=== PATIENT | male | born 1950 | race Caucasian/White ===

== ENCOUNTER → 2018-11-22 07:22 | Outpatient (CLI) | payer OTHER, SELFPAY ==
[2018-11-16 18:39] VITALS: BMI 24.3
--- NOTE | 2018-11-22 10:03 | NEURO ---
NCS and/or EMG Patient Report Ordering Doctor: María Murphy DATE OF SERVICE: 11/22/18 This is a right upper extremity EMG and nerve conduction study performed on this 68-year-old male with a history of diabetes first diagnosed about 16 years ago, he says up until about 10 years ago his diabetes was poorly controlled but has been well controlled since that time. About 2 months ago, he awoke with anesthesia is in his first 3 digits on his right hand which has since evolved to affect all of his fingers. He does not know his current hemoglobin A1c but he says his blood sugars usually run in the 110 to 120 range. Wrist splints and anti-inflammatories have not been helpful for his hand discomfort. Right upper extremity sensory and motor nerve conduction studies performed. The median motor and sensory distal latencies are prolonged with reduced amplitude diffusely along the path of the median nerve and severely reduced conduction velocity. The ulnar motor and sensory and radial sensory responses are relatively preserved. The right median F wave is severely prolonged compared to the ulnar f wave. Needle electromyography is performed of the right upper extremity. Muscles evaluated included the first dorsal interosseous, abductor pollicis brevis, brachioradialis, biceps, triceps and deltoid muscles. The abductor pollicis brevis muscle and the first dorsal interosseous did demonstrate large motor units with minimal increased insertional activity and fibrillation potentials. All other muscles demonstrated normal insertional activity with absence of pathologic spontaneous activity. Motor unit potential recruitment pattern and amplitude was normal in all other muscles tested. It is noted that he has atrophy of intrinsic hand muscles bilaterally. Impression this is an abnormal electrophysiologic study of the right upper extremity consistent with severe median neuropathy however this is likely proximal to the carpal tunnel based on abnormalities more proximal carpal tunnel on elective histologic testing as well as clear atrophy of the ulnar muscle bilaterally. There is no evidence of C8 radiculopathy. Assuming blood sugars are well controlled other evaluations could include serum and urine protein electrophoresis, LFTs, B12 levels, and testing for inflammatory markers including sed rate and CRP.
--- OUTSIDE RECORDS SUMMARY | 2019-01-24 07:35 | XMS RPT_ITS ---
:1950 Author Organization [facility] Care Team Providers Name Role Phone María Murphy MANAGER STORY-[place]un[place] Attending Unavailable María Murphy MANAGER STORY-C Referring Unavailable María Murphy MANAGER STORY-C Primary Care Unavailable PROBLEMS PROBLEMS DATE TYPE CONDITION / CODE ATTENDING STATUS SOURCE 11/22/2018 Unknown R20.0 - Jeffrey, Active [place] Anesthesia of María MANAGER STORY-C [facility] skin / Hospital R20.0(ICD-10) Repository 11/22/2018 Unknown G56.00 - Carpal Murphy, Active [place] tunnel syndrome, María MANAGER STORY-C [facility] unspecified upper Hospital limb / Repository G56.00(ICD-10) 11/22/2018 Unknown R25.2 - Cramp and Jeffrey, Active [facility] spasm / María MANAGER STORY-C [facility] R25.2(ICD-10) Hospital Repository PROCEDURES PROCEDURES No Procedure Records FoundRESULTS RESULTS NCS AND/OR EMG Observed: 11/23/2018 Status: F Source: [place] PATIENT 9:55 AM [facility] REPOSITORY [facility] Pulmonary Services/Neurology [address] [place] [address] MR#: [id number] Acct: [id number] Name: ETHEL PACHECO Rep #: [id number] : 1950 68 From: Iván Lowery MD Referring Dr: María Murphy, MANAGER STORY Status: REG CLI Ordering Dr: Date: Location: [facility] Sex: M C NCS and/or EMG Patient Report Ordering Doctor: María Murphy DATE OF SERVICE: 11/22/18 This is a right upper extremity EMG and nerve conduction study performed on this 68-year-old male with a history of diabetes first diagnosed about 16 years ago, he says up until about 10 years ago his diabetes was poorly controlled but has been well controlled since that time. About 2 months ago, he awoke with anesthesia is in his first 3 digits on his right hand which has since evolved to affect all of his fingers. He does not know his current hemoglobin A1c but he says his blood sugars usually run in the 110 to 120 range. Wrist splints and anti-inflammatories have not been helpful for his hand discomfort. Right upper extremity sensory and motor nerve conduction studies performed. The median motor and sensory distal latencies are prolonged with reduced amplitude diffusely along the path of the median nerve and severely reduced conduction velocity. The ulnar motor and sensory and radial sensory responses are relatively preserved. The right median F wave is severely prolonged compared to the ulnar f wave. Needle electromyography is performed of the right upper extremity. Muscles evaluated included the first dorsal interosseous, abductor pollicis brevis, brachioradialis, biceps, triceps and deltoid muscles. The abductor pollicis brevis muscle and the first dorsal interosseous did demonstrate large motor units with minimal increased insertional activity and fibrillation potentials. All other muscles demonstrated normal insertional activity with absence of pathologic spontaneous activity. Motor unit potential recruitment pattern and amplitude was normal in all other muscles tested. It is noted that he has atrophy of intrinsic hand muscles bilaterally. Impression this is an abnormal electrophysiologic study of the right upper extremity consistent with severe median neuropathy however this is likely proximal to the carpal tunnel based on abnormalities more proximal carpal tunnel on elective histologic testing as well as clear atrophy of the ulnar muscle bilaterally. There is no evidence of C8 radiculopathy. Assuming blood sugars are well controlled other evaluations could include serum and urine protein electrophoresis, LFTs, B12 levels, and testing for inflammatory markers including sed rate and CRP. 11/23/18 0955 <Electronically signed by Iván Lowery MD> Date Iván Lowery MD CC: NATALIE Murphy; Iván Lowery MD Date Dictated: 11/22/18 1003 Date Transcribed: 11/22/181002 Director Semiconductor: MELYSSA Signed OFFICE VISIT Observed: 11/17/2018 Status: F Source: [facility] 11:14 AM [facility] REPOSIT[facility] [address] [place] [address] OFFICE VISIT Date of Service: 11/16/18 MR#: [id number] Acct: [id number] Name: ETHEL PACHECO Rep #: [id number] : 1950 Provider: NATALIE Murphy Age/Sex: 68/M Location: [facility] Status: Signed Intake Vital Signs11/16/18 Height 5 ft 6 in Intake Visit Reasons: R HAND PAIN ORDER TEST Accompanied by: self Is patient in pain?: No Allergies No Known Allergies Allergy (Unverified 10/05/18 18:35) Medications aspirin 81 mg tablet,delayed release 81 mg PO DAILY 10/05/18 [History Confirmed 10/05/18] cholecalciferol (vitamin D3) 5,000 unit capsule 10,000 unit PO DAILY cap 10/05/18 [History Confirmed 10/05/18] glyburide 5 mg tablet 10 mg PO DAILY tab 10/05/18 [History Confirmed 10/05/18] losartan 100 mg tablet 100 mg PO DAILY 10/05/18 [History Confirmed 10/05/18] metformin 1,000 mg tablet 1,000 mg PO BID 10/05/18 [History Confirmed 10/05/18] naproxen 500 mg tablet 500 mg PO BID #60 tab 10/05/18 [Rx Confirmed 10/05/18] simvastatin 20 mg tablet 20 mg PO QHS 10/05/18 [History Confirmed 10/05/18] gabapentin 100 mg capsule 200 mg PO .qid PRN 30 Days #360 cap 11/16/18 [Rx Confirmed 11/16/18] PFSH Medical History DIABETES TYPE 2 (Acute) Hyperlipidemia (Acute) Social History Smoking Status: Current every day smoker second hand exposure: Yes alcohol intake: current substance use type: does not use HPI HPI (General) HPI HPI: ETHEL PACHECO, is a 68 M who presents to the office today for numbness in the R hand for a couple of months I saw him for the same thing in Oct and gave him a cockup splint and antiinflammatories and it does not help He is losing strength and movement ,c/o pain at work gets spasms in his hand unable to grasp things . 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 ROS [facility] Musculoskeletal: Positive for numbness (r hand) and joint pain Neuro Neurology: Positive for numbness (r hand) Exam Const Constitutional: Yes cooperative, Yes healthy appearing Orientation: Yes alert, awake and oriented x3 Resp Effort AND Inspection: Yes normal respiratory effort Auscultation: Yes clear to auscultation bilaterally Cardio Palpitation: Yes normal PMI Rate: Yes regular rate Rhythm: Yes regular rhythm GI Inspection: Yes normal to inspection Auscultation: Yes normal bowel sounds Skin General: no rashes or lesions noted Lesions: Yes no lesions Extrem General: Yes no clubbing, cyanosis or edema and normal exam except as noted (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 Spasms of the hands or feet R25.2 2. Carpal tunnel syndrome of right wrist G56.01 3. Numbness of right hand R20.0 Patient Instructions Stop the naproxen, Stop the splint wearing unless it helps try the gabapentin 1-2 up to 4-5 x a day I will call with when to go for the EMG testing and the Dr appointment. Medications New: Coding Level of Care Code Off vis,est,level 3 Diagnoses Spasms of the hands or feet R25.2 Carpal tunnel syndrome of right wrist G56.01 Laterality: right Numbness of right hand R20.0 11/17/18 1114 <Electronically signed by María OROZCO> Date María OROZCO CC: OFFICE VISIT Observed: 10/05/2018 Status: F Source: [place] 9:21 PM [facility] REPOSITORY [facility] [address] [place] [address] OFFICE VISIT Date of Service: 10/05/18 MR#: [id number] Acct: [id number] Name: ETHEL PACHECO Rep #: [id number] : 1950 Provider: NATALIE Murphy Age/Sex: 68/M Location: [facility] Status: Signed Intake Vital Signs10/05/18 Height 5 ft 6 in 10/05/18 Weight: 145 lb Intake Visit Reasons: R HAND NUMB Allergies No Known Allergies Allergy (Unverified 10/05/18 18:35) Medications aspirin 81 mg tablet,delayed release 81 mg PO DAILY 10/05/18 [History Confirmed 10/05/18] cholecalciferol (vitamin D3) 5,000 unit capsule 10,000 unit PO DAILY cap 10/05/18 [History Confirmed 10/05/18] glyburide 5 mg tablet 10 mg PO DAILY tab 10/05/18 [History Confirmed 10/05/18] losartan 100 mg tablet 100 mg PO DAILY 10/05/18 [History Confirmed 10/05/18] metformin 1,000 mg tablet 1,000 mg PO BID 10/05/18 [History Confirmed 10/05/18] naproxen 500 mg tablet 500 mg PO BID #60 tab 10/05/18 [Rx Confirmed 10/05/18] simvastatin 20 mg tablet 20 mg PO QHS 10/05/18 [History Confirmed 10/05/18] PFSH Medical History DIABETES TYPE 2 (Acute) Hyperlipidemia (Acute) Social History Smoking Status: Current every day smoker second hand exposure: Yes alcohol intake: current substance use type: does not use HPI HPI (General) HPI HPI: ETHEL PACHECO, is a 68 M who presents to the office today for numbness in his R hand for 10 -12 days noticed mostly after raking a month ago was doing alot of raking hand swollen up and was blanche painful for 3-4 days and hot to touch then went away and then this happened the L thumb has some deformity and is contracted The R hand looks normal but c/o 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 or 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 a wayne or anything up has some swelling on the inner wrist that could be ganglion cysts swollen up Needs a hand surgeon to evaluate Also suggested checking for RA or SIMONE ROS Musc Musculoskeletal: Positive for other (R hand nudmbness mostly first 3 fingers including thumb) Skin Skin: Positive for other (lump on the R inner wrist painful to touch) Breast Breast: Positive for other (lump on the R inner wrist painful to touch) Exam Const Constitutional: Yes cooperative, Yes healthy appearing Orientation: Yes alert, awake and oriented x3 Resp Effort AND Inspection: Yes normal respiratory effort Auscultation: Yes clear to auscultation bilaterally Cardio Palpitation: Yes normal PMI Rate: Yes regular rate Rhythm: Yes regular rhythm Skin General: no rashes or lesions noted Lesions: Yes no lesions Extrem General: Yes normal to inspection and other (neg tinels or phalens applied cock up splint to try) Neuro General: Yes alert and oriented x3 Psych Appearance: Positive grossly normal Mood: Positive congruent mood Affect: Positive normal affect Assessment AND Plan Problems 1. Carpal tunnel syndrome of right wrist G56.01 2. Numbness of right hand R20.0 3. Primary osteoarthritis of both hands M19.041; M19.042 Patient Instructions Wear the cock-up split 24/05 Take the naproxen for the swelling and pain follow up with a hand surgeon Medications New: Coding Level of Care Code Off vis,est,level 3 Diagnoses Carpal tunnel syndrome of right wrist G56.01 Laterality: right Numbness of right hand R20.0 Primary osteoarthritis of both hands M19.041; M19.042 Osteoarthritis location: hand Osteoarthritis type: primary Laterality: bilateral 10/05/182120 <Electronically signed by María OROZCO> Date María OROZCO CC: ALLERGIES ALLERGIES DATE TYPE / CODE NAME / CODE REACTION SEVERITY SOURCE 10/05/2018 Drug No Known Unknown [facility] Allergy/4160 Allergies/F00 [facility] [address](SNOMED [id number](RXNOR Repository CT) M) ENCOUNTERS ENCOUNTERS ADMIT/DISCHARGE ACCOUNT ADMITTING ENCOUNTER LOCATION SOURCE NUMBER CLASS 11/22/2018 [id number] Ambulatory [facility] [address] [place] [address] ing:PSN Repository PAYERS PAYERS ENCOUNTER GUARANTOR PAYER SUBSCRIBER SOURCE 11/22/2018 ETHEL LÓPEZ Insurance:ADDY GAN: [facility] Number: [id number] [id number] Repository [address]Phu: ([phone] Date:[id number] [phone] () [address], [place] [address]AX: 11/22/2018 Secondary NOT GIVENCRISTIAN Mary Insurance:SELF PAY [facility] Effective Repository Date:2018-11-17
== END ==
PROVIDERS: Family Provider Nurse Practitioner; PCP Nurse Practitioner; Referring Provider Nurse Practitioner; Visit Provider Nurse Practitioner
DX: R20.0 Anesthesia of skin (principal); G56.00 Carpal tunnel syndrome, unspecified upper limb; R25.2 Cramp and spasm
CPT/HCPCS: 95886; 95909

== ENCOUNTER → 2018-12-01 21:39 | Outpatient (CLI) | payer OTHER, SELFPAY ==
[2018-11-16 18:39] VITALS: BMI 24.3
[2018-12-01 21:57] LABS: Erythrocyte Sedimentation Rate 12 mm/hr (0-20)
[2018-12-01 22:07] LABS: AST(SGOT) 25 U/L (15-37); Alanine Aminotransfer ALT/SGPT 32 U/L (16-61); Albumin, Serum 4.4 g/dL (3.2-5.0); Alkaline Phosphatase 48 U/L (45-117); Anion Gap 11 (5-15); BUN 13 mg/dL (7-18); BUN/Creat Ratio 14.3 RATIO (10-20); CRP 5.66 mg/L (0.0-3.0); Calcium,Total 9.5 mg/dL (8.5-10.1); Chloride 100 mmol/L (98-107); Creatinine, Serum 0.91 mg/dL (0.70-1.30); EST Glomerular Filtration Rate 89 mL/min (>60); Est Glom Filt Rate - Afr Amer 107 mL/min (>60); Globulin 4.3 g/dL (2.2-4.2); Glucose 128 mg/dL (74-106); Potassium 4.3 mmol/L (3.5-5.1); Protein, Total 8.7 g/dL (6.4-8.2); Sodium Level 137 mmol/L (136-145)
[2018-12-01 22:21] LABS: Vitamin B12 246 pg/mL (211-911)
[2018-12-07 14:07] LABS: Albumin 4.2 g/dL (2.9-4.4); Alpha-1-Globulins 0.3 g/dL (0.0-0.4); Alpha-2-Globulins 1.1 g/dL (0.4-1.0); Immunoglobulin A 156 mg/dL (61-437); Immunoglobulin G 838 mg/dL (700-1600); Immunoglobulin M 125 mg/dL (20-172); PROEL- TOTAL PROTEIN 7.8 g/dL (6.0-8.5); PROELU- Albumin, Urine 74.8 % (.); PROELU- Alpha-1-Globulin,Ur 3.9 % (.); PROELU- Alpha-2-Globulin,Ur 2.8 % (.); PROELU- Beta Globulin, Ur 9.4 % (.); PROELU- Gamma Globulin, Ur 9.1 % (.); Total Protein, Ur 21.2 mg/dL (Not Estab.)
== END ==
PROVIDERS: Family Provider Nurse Practitioner; PCP Nurse Practitioner; Referring Provider Nurse Practitioner; Visit Provider Nurse Practitioner
DX: R80.9 Proteinuria, unspecified (principal); R76.9 Abnormal immunological finding in serum, unspecified; R71.8 Other abnormality of red blood cells; R68.89 Other general symptoms and signs; E53.8 Deficiency of other specified B group vitamins
CPT/HCPCS: 80053; 82607; 82784; 84165; 84166; 85652; 86140; 86334

== ENCOUNTER → 2018-12-28 22:58 | Outpatient (CLI) | payer OTHER, SELFPAY ==
[2018-12-28 18:39] VITALS: BMI 24.0
[2018-12-28 23:20] LABS: Cholesterol 96 mg/dL (200); High Density Lipoprotein 49 mg/dL; PSA,Total - Annual Screen 1.75 ng/mL (0.00-4.00); Triglycerides 116 mg/dL; Very Low Density Lipoprotein 23 mg/dL (5-40)
[2018-12-28 23:23] LABS: Absolute Lymphocyte Count 2.01 X10^3/ul (0.83-4.51); Absolute Neutrophil Count 5.7 X10^3/uL (2.0-7.7); Basophil# 0.03 X10^3/uL; Basophil% 0.4 % (0-1); Eosinophil# 0.11 X10^3/uL; Eosinophils% 1.3 % (0-5); Hematocrit 44.9 % (40-54); Hemoglobin 15.5 g/dl (13.0-16.5); Lymphocyte # 2.01 X10^3/ul (4.0); Lymphocyte % 23.9 % (19-41); Mean Corp Hgb Conc 34.5 g/gl (32-36); Mean Corpuscular Hgb 33.5 pg (27.0-32.0); Mean Corpuscular Volume 97.2 fL (80-94); Mean Platelet Vol. 10.6 fl (6.2-12.0); Monocyte# 0.58 X10^3/uL; Monocyte% 6.9 % (0-10); Neutrophil # 5.66 X10^3/uL (2.7-7.7); Neutrophil % 67.1 % (47-70); Platelet Count 156 K/mm3 (150-450); RBC Distribution Width CV 12.5 % (11.6-14.6); RBC Distribution Width SD 43.8 fl (35.1-43.9); Red Blood Count 4.62 M/mm3 (4.6-6.2); White Blood Count 8.4 K/mm3 (4.4-11.0)
[2018-12-28 23:33] LABS: POSITIVE COUNT NO; POSITIVE DIFFERENTIAL NO; POSITIVE MORPHOLOGY NO
== END ==
PROVIDERS: Family Provider Nurse Practitioner; PCP Nurse Practitioner; Referring Provider Nurse Practitioner; Visit Provider Nurse Practitioner
DX: E78.5 Hyperlipidemia, unspecified (principal); R35.0 Frequency of micturition
CPT/HCPCS: 80061; 84153; 85025; G0103

== ENCOUNTER → 2021-04-01 | Outpatient (CLI) | payer MEDICARE, SELFPAY ==
[2021-04-01 16:14] VITALS: BMI 24.2
[2021-04-01 21:41] LABS: Absolute Lymphocyte Count 2.41 X10^3/uL (0.83-4.51); Absolute Neutrophil Count 4.3 X10^3/uL (2.0-7.7); Basophil# 0.06 X10^3/uL; Basophil% 0.8 % (0-1); Eosinophil# 0.15 X10^3/uL; Hematocrit 35.6 % (40-54); Lymphocyte # 2.41 X10^3/ul (0.83-4.51); Lymphocyte % 32.1 % (19-41); Mean Corp Hgb Conc 33.7 g/dL (32-36); Mean Corpuscular Hgb 31.4 pg (27.0-32.0); Mean Corpuscular Volume 93.2 fL (80-94); Mean Platelet Vol. 11.4 fl (6.2-12.0); Monocyte# 0.52 X10^3/uL; Monocyte% 6.9 % (0-10); NRBC Flagged by Analyzer 0 % (0-5); Neutrophil # 4.34 X10^3/uL (2.7-7.7); Neutrophil % 57.9 % (47-70); Platelet Count 177 K/mm3 (150-450); RBC Distribution Width CV 12.3 % (11.6-14.6); RBC Distribution Width SD 41.9 fl (35.1-43.9); Red Blood Count 3.82 M/mm3 (4.6-6.2); White Blood Count 7.5 K/mm3 (4.4-11.0)
[2021-04-01 21:58] LABS: ALB/GLOB Ratio 1.1 RATIO (0.9-2.4); AST(SGOT) 15 U/L (15-37); Alanine Aminotransfer ALT/SGPT 21 U/L (16-61); Albumin, Serum 3.9 g/dL (3.2-5.0); Alkaline Phosphatase 38 U/L (45-117); Anion Gap 5 (5-15); BUN 25 mg/dL (7-18); BUN/Creat Ratio 18.8 RATIO (10-20); Calcium,Total 9.4 mg/dL (8.5-10.1); Chloride 100 mmol/L (98-107); Cholesterol 143 mg/dL (200); Creatinine, Serum 1.33 mg/dL (0.70-1.30); EST Glomerular Filtration Rate 57 mL/min (>60); Est Glom Filt Rate - Afr Amer 69 mL/min (>60); Globulin 3.7 g/dL (2.2-4.2); Glucose 328 mg/dL (74-106); High Density Lipoprotein 44 mg/dL; PSA,Total - Annual Screen 2.13 ng/mL (0.00-4.00); Potassium 5.4 mmol/L (3.5-5.1); Protein, Total 7.6 g/dL (6.4-8.2); Sodium Level 134 mmol/L (136-145); Triglycerides 165 mg/dL; Very Low Density Lipoprotein 33 mg/dL (5-40)
== END | disposition home or self-care (01) ==
PROVIDERS: PCP Nurse Practitioner; Visit Provider Nurse Practitioner
DX: I10 Essential (primary) hypertension (principal); N40.0 Benign prostatic hyperplasia without lower urinary tract symptoms; E11.649 Type 2 diabetes mellitus with hypoglycemia without coma; Z12.5 Encounter for screening for malignant neoplasm of prostate
CPT/HCPCS: 80053; 80061; 84153; 85025; G0103

== ENCOUNTER 2021-12-19 22:30 | Outpatient (CLI) | payer MEDICARE, SELFPAY ==
[2021-12-19 22:47] LABS: Absolute Lymphocyte Count 1.56 X10^3/uL (0.83-4.51); Absolute Neutrophil Count 5.6 X10^3/uL (2.0-7.7); Basophil# 0.04 X10^3/uL; Basophil% 0.5 % (0-1); Eosinophil# 0.05 X10^3/uL; Eosinophils% 0.6 % (0-5); Hematocrit 40.7 % (40-54); Hemoglobin 13.7 g/dL (13.0-16.5); Lymphocyte # 1.56 X10^3/ul (0.83-4.51); Lymphocyte % 20.1 % (19-41); Mean Corp Hgb Conc 33.7 g/dL (32-36); Mean Corpuscular Hgb 30.5 pg (27.0-32.0); Mean Corpuscular Volume 90.6 fL (80-94); Mean Platelet Vol. 11.6 fl (6.2-12.0); Monocyte# 0.54 X10^3/uL; Monocyte% 6.9 % (0-10); NRBC Flagged by Analyzer 0 % (0-5); Neutrophil # 5.57 X10^3/uL (2.7-7.7); Neutrophil % 71.8 % (47-70); Platelet Count 191 K/mm3 (150-450); RBC Distribution Width CV 13.2 % (11.6-14.6); Red Blood Count 4.49 M/mm3 (4.6-6.2); White Blood Count 7.8 K/mm3 (4.4-11.0)
[2021-12-19 23:03] LABS: ALB/GLOB Ratio 0.9 RATIO (0.9-2.4); AST(SGOT) 14 U/L (15-37); Alanine Aminotransfer ALT/SGPT 27 U/L (16-61); Albumin, Serum 3.5 g/dL (3.2-5.0); Alkaline Phosphatase 44 U/L (45-117); Anion Gap 7 (5-15); BUN 31 mg/dL (7-18); BUN/Creat Ratio 24.2 RATIO (10-20); Calcium,Total 9.7 mg/dL (8.5-10.1); Chloride 100 mmol/L (98-107); Cholesterol 176 mg/dL (200); Creatinine, Serum 1.28 mg/dL (0.70-1.30); EST Glomerular Filtration Rate 59 mL/min (>60); Est Glom Filt Rate - Afr Amer 72 mL/min (>60); Globulin 4.1 g/dL (2.2-4.2); Glucose 314 mg/dL (74-106); High Density Lipoprotein 42 mg/dL; Potassium 4.2 mmol/L (3.5-5.1); Protein, Total 7.6 g/dL (6.4-8.2); Sodium Level 133 mmol/L (136-145); Triglycerides 218 mg/dL; Very Low Density Lipoprotein 44 mg/dL (5-40)
[2021-12-19 23:12] LABS: Hemoglobin A1c 11.3 % (3.8-5.6)
== END 2021-12-19 23:59 | disposition home or self-care (01) ==
PROVIDERS: PCP Nurse Practitioner; Referring Provider Nurse Practitioner; Visit Provider Nurse Practitioner
DX: E11.649 Type 2 diabetes mellitus with hypoglycemia without coma (principal); I10 Essential (primary) hypertension; D64.9 Anemia, unspecified; E78.5 Hyperlipidemia, unspecified
CPT/HCPCS: 80053; 80061; 83036; 85025

== ENCOUNTER → 2022-08-12 | Outpatient (CLI) | payer MEDICARE, SELFPAY ==
[2022-08-12 22:07] LABS: Uric Acid 5.6 mg/dL (3.5-7.2)
[2022-08-12 22:29] LABS: Hemoglobin A1c 7.6 % (3.8-5.6)
[2022-08-14 13:08] LABS: Anti-Centromere B Ab <0.2 AI (0.0-0.9); Anti-Chromatin <0.2 AI (0.0-0.9); Anti-Jo <0.2 AI (0.0-0.9); Anti-Scleroderma-70 AB 0.7 AI (0.0-0.9); RNP Ab 0.2 AI (0.0-0.9); SJOGREN'S Anti-SS-A test < 0.2 AI (0.0-0.9); SJOGREN'S Anti-SS-B test < 0.2 AI (0.0-0.9); Smith Ab <0.2 AI (0.0-0.9)
[2022-08-15 12:23] LABS: Anti-dsDNA Ab 1 IU/mL (0-9)
== END | disposition home or self-care (01) ==
PROVIDERS: PCP Nurse Practitioner; Visit Provider Nurse Practitioner
DX: M79.89 Other specified soft tissue disorders (principal); E11.65 Type 2 diabetes mellitus with hyperglycemia; R20.0 Anesthesia of skin
CPT/HCPCS: 83036; 84550; 86225; 86235

== ENCOUNTER 2023-01-01 22:14 | Outpatient (CLI) | payer MEDICARE, SELFPAY ==
[2023-01-01 22:31] LABS: Absolute Lymphocyte Count 2.06 X10^3/uL (0.83-4.51); Absolute Neutrophil Count 4.1 X10^3/uL (2.0-7.7); Basophil# 0.07 X10^3/uL; Eosinophil# 0.12 X10^3/uL; Eosinophils% 1.7 % (0-5); Hematocrit 39.6 % (40-54); Hemoglobin 13.4 g/dL (13.0-16.5); Lymphocyte # 2.06 X10^3/ul (0.83-4.51); Lymphocyte % 29.6 % (19-41); Mean Corp Hgb Conc 33.8 g/dL (32-36); Mean Corpuscular Hgb 32.1 pg (27.0-32.0); Mean Corpuscular Volume 94.7 fL (80-94); Mean Platelet Vol. 11.7 fl (6.2-12.0); Monocyte# 0.59 X10^3/uL; Monocyte% 8.5 % (0-10); NRBC Flagged by Analyzer 0 % (0-5); Neutrophil # 4.11 X10^3/uL (2.7-7.7); Neutrophil % 58.9 % (47-70); Platelet Count 150 K/mm3 (150-450); RBC Distribution Width CV 13.1 % (11.6-14.6); RBC Distribution Width SD 45.3 fl (35.1-43.9); Red Blood Count 4.18 M/mm3 (4.6-6.2)
[2023-01-01 22:45] LABS: ALB/GLOB Ratio 1.1 RATIO (0.9-2.4); AST(SGOT) 21 U/L (15-37); Alanine Aminotransfer ALT/SGPT 30 U/L (16-61); Albumin, Serum 3.8 g/dL (3.2-5.0); Alkaline Phosphatase 30 U/L (45-117); Anion Gap 6 (5-15); BUN 25 mg/dL (7-18); BUN/Creat Ratio 18.1 RATIO (10-20); Calcium,Total 9.8 mg/dL (8.5-10.1); Chloride 101 mmol/L (98-107); Cholesterol 136 mg/dL (200); Creatinine, Serum 1.38 mg/dL (0.70-1.30); EST Glomerular Filtration Rate 54 mL/min (>60); Est Glom Filt Rate - Afr Amer 65 mL/min (>60); Globulin 3.6 g/dL (2.2-4.2); Glucose 206 mg/dL (74-106); High Density Lipoprotein 32 mg/dL; Potassium 4.9 mmol/L (3.5-5.1); Protein, Total 7.4 g/dL (6.4-8.2); Sodium Level 135 mmol/L (136-145); Triglycerides 347 mg/dL; Very Low Density Lipoprotein 69 mg/dL (5-40)
[2023-01-01 23:03] LABS: Hemoglobin A1c 8.8 % (3.8-5.6)
== END 2023-01-01 23:59 | disposition home or self-care (01) ==
PROVIDERS: PCP Nurse Practitioner; Visit Provider Nurse Practitioner
DX: Z00.00 Encounter for general adult medical examination without abnormal findings (principal); E11.65 Type 2 diabetes mellitus with hyperglycemia; Z12.5 Encounter for screening for malignant neoplasm of prostate
CPT/HCPCS: 80053; 80061; 83036; 84153; 85025; G0103

== ENCOUNTER 2024-01-12 22:47 | Outpatient (CLI) | payer MEDICARE, SELFPAY ==
[2024-01-12 23:06] LABS: Absolute Lymphocyte Count 1.56 X10^3/uL (0.83-4.51); Absolute Neutrophil Count 8.1 X10^3/uL (2.0-7.7); Basophil# 0.05 X10^3/uL; Basophil% 0.5 % (0-1); Eosinophil# 0.13 X10^3/uL; Eosinophils% 1.2 % (0-5); Hematocrit 40.8 % (40-54); Lymphocyte # 1.56 X10^3/ul (0.83-4.51); Lymphocyte % 14.7 % (19-41); Mean Corp Hgb Conc 31.9 g/dL (32-36); Mean Corpuscular Hgb 31.4 pg (27.0-32.0); Mean Corpuscular Volume 98.6 fL (80-94); Mean Platelet Vol. 10.8 fl (6.2-12.0); Monocyte# 0.72 X10^3/uL; Monocyte% 6.8 % (0-10); NRBC Flagged by Analyzer 0 % (0-5); Neutrophil # 8.12 X10^3/uL (2.7-7.7); Neutrophil % 76.2 % (47-70); Platelet Count 203 K/mm3 (150-450); RBC Distribution Width CV 13.7 % (11.6-14.6); RBC Distribution Width SD 49.1 fl (35.1-43.9); Red Blood Count 4.14 M/mm3 (4.6-6.2); White Blood Count 10.6 K/mm3 (4.4-11.0)
[2024-01-12 23:23] LABS: AST(SGOT) 20 U/L (15-37); Alanine Aminotransfer ALT/SGPT 29 U/L (16-61); Albumin, Serum 3.8 g/dL (3.2-5.0); Alkaline Phosphatase 30 U/L (45-117); Anion Gap 7 (5-15); BUN 29 mg/dL (7-18); BUN/Creat Ratio 21.3 RATIO (10-20); Calcium,Total 9.6 mg/dL (8.5-10.1); Chloride 103 mmol/L (98-107); Cholesterol 133 mg/dL (200); Creatinine, Serum 1.36 mg/dL (0.70-1.30); EST Glomerular Filtration Rate 55 mL/min (>60); Est Glom Filt Rate - Afr Amer 66 mL/min (>60); Globulin 3.7 g/dL (2.2-4.2); Glucose 191 mg/dL (74-106); High Density Lipoprotein 40 mg/dL; PSA,Total - Annual Screen 9.65 ng/mL (0.00-4.00); Potassium 5.2 mmol/L (3.5-5.1); Protein, Total 7.5 g/dL (6.4-8.2); Sodium Level 137 mmol/L (136-145); Triglycerides 230 mg/dL; Very Low Density Lipoprotein 46 mg/dL (5-40)
[2024-01-12 23:27] LABS: Hemoglobin A1c 8.1 % (3.8-5.6)
== END 2024-01-12 23:59 | disposition home or self-care (01) ==
PROVIDERS: PCP Nurse Practitioner; Visit Provider Nurse Practitioner
DX: E11.65 Type 2 diabetes mellitus with hyperglycemia (principal); E78.5 Hyperlipidemia, unspecified; N40.0 Benign prostatic hyperplasia without lower urinary tract symptoms; D64.9 Anemia, unspecified; I10 Essential (primary) hypertension; Z12.5 Encounter for screening for malignant neoplasm of prostate
CPT/HCPCS: 80053; 80061; 83036; 84153; 85025; G0103

== ENCOUNTER → 2024-03-07 | Outpatient (CLI) | payer MEDICARE, SELFPAY ==
[2024-03-07 21:59] LABS: PSA,Total- Diagnostic 4.54 ng/mL (0.0-4.0)
[2024-03-07 22:03] LABS: Hemoglobin A1c 7.7 % (3.8-5.6)
== END | disposition home or self-care (01) ==
PROVIDERS: PCP Nurse Practitioner; Visit Provider Nurse Practitioner
DX: E11.65 Type 2 diabetes mellitus with hyperglycemia (principal); R97.20 Elevated prostate specific antigen [PSA]
CPT/HCPCS: 83036; 84153

== ENCOUNTER → 2024-05-22 | Outpatient (CLI) | payer MEDICARE, SELFPAY ==
[2024-05-22 21:43] LABS: PSA,Total- Diagnostic 6.26 ng/mL (0.0-4.0)
== END | disposition home or self-care (01) ==
PROVIDERS: PCP Nurse Practitioner; Referring Provider Nurse Practitioner; Visit Provider Nurse Practitioner
DX: R97.20 Elevated prostate specific antigen [PSA] (principal); E11.649 Type 2 diabetes mellitus with hypoglycemia without coma
CPT/HCPCS: 84153

== ENCOUNTER → 2024-07-14 | Outpatient (CLI) | payer MEDICARE, SELFPAY ==
[2024-07-14 23:53] LABS: PSA,Total- Diagnostic 5.48 ng/mL (0.0-4.0); Uric Acid 5.6 mg/dL (3.5-7.2)
== END | disposition home or self-care (01) ==
PROVIDERS: PCP Nurse Practitioner; Referring Provider Nurse Practitioner; Visit Provider Nurse Practitioner
DX: M10.9 Gout, unspecified (principal); E11.51 Type 2 diabetes mellitus with diabetic peripheral angiopathy without gangrene; I70.219 Atherosclerosis of native arteries of extremities with intermittent claudication, unspecified extremity; R97.20 Elevated prostate specific antigen [PSA]
CPT/HCPCS: 84153; 84550

== ENCOUNTER → 2025-04-02 | Outpatient (CLI) | payer MEDICARE, SELFPAY ==
--- OUTSIDE RECORDS SUMMARY | 2025-04-03 00:15 | XMS RPT_ITS | CCD ---
Author Organization [facility] Inform ion Partnership [facility] Care Team Providers Care Fire Regulator Name Role Phone Osman Salter MD Unavailable María Murphy Primary Care Provider [phone] Jeffrey PERSONAL COMPUTER NETWORK ANALYST.María LIU Primary Care Provide r Jeffrey CODIFIER, María Attending Unavailable Jeffrey CODIFIER, María Primary Care Unavailable Jeffrey CODIFIER, María Attending Unavailable Jeffrey CODIFIER, María Primary Care Unavailable Jeffrey CODIFIER, María Attending Unavailable Jeffrey CODIFIER, María Referring Unavailable Jeffrey CODIFIER, María Primary Care Unavailable Jeffrey CODIFIER, María Referring Unavailable Jeffrey CODIFIER, María Primary Care Unavailable Jeffrey CODIFIER, María Attending Unavailable Medications Current Medications Medication Drug Class(es) Dates Sig (Normalized) Sig (Original) aspirin 81 mg delayed release oral tablet (2 sources) Platelet Aggregation Inhibitor, Nonsteroidal Anti-inflammatory Drug Start: 8 Aspirin (Adult Low Dose Aspirin) 81 mg tablet,delayed release (DR/EC) Active 81 MG PO DAILY October 05, 2018 1:00am bimatoprost 0.1 mg/ml ophthalmic solution (2 sources) Prostaglandin Analog take 1 drop(s) into the eye(s) once daily bimatoprost (LUMIGAN) 0.01 % drop ophthalmic drops Use 1 Drop in both eyes once daily. 0 Active cholecalciferol 0.125 mg oral capsule (2 sources) Vitamin D Start: 8 take 64741 [IU] by mouth once daily Cholecalciferol (Vitamin D3) Active 77000 UNIT PO DAILY October 05, 2018 1:00am ciprofloxacin 500 mg oral tablet (1 source) Quinolone Antimicrobial Start: 4 take 1 tablet by mouth twice daily Ciprofloxacin Hcl (Cipro) 500 mg tablet Active 500 MG PO TWICE A DAY 60 January 12 2024 12:00am diclofenac sodium 0.01 mg/mg topical gel (3 sources) Nonsteroidal Anti-inflammatory Drug Start: 3 End: 4 apply 4 g topically once Diclofenac Sodium Active 4 GM TOPICAL ONCE 200 January 12, 2024 4:17pm apply to single hand knee, ankle, foot; for foot includes sole/toes/top of foot lisinopril 20 mg oral tablet (2 sources) Angiotensin Converting Enzyme Inhibitor Start: 4 take 1 tablet by mouth once daily lisinopril 20 mg tablet Take 1 tablet by mouth once daily. 90 tablet 3 11/22/2013 Active meloxicam 15 mg oral tablet (3 sources) Nonsteroidal Anti-inflammatory Drug Start: 2 End: 4 Meloxicam Active 15 MG PO daily January 12, 2024 4:09pm start every day for 2 weeks then 1 every 3 days pioglitazone 45 mg oral tablet (7 sources) Peroxisome Proliferator Receptor alpha Agonist, Peroxisome Proliferator Receptor gamma Agonist, Thiazolidinedione Start: 3 End: 3 take 45 mg by mouth once daily Pioglitazone Active 45 MG PO DAILY May 10, 2023 4:40pm Start: 12-19-2021 End: 05-10-2023 take 30 mg by mouth once daily Pioglitazone Discontinu ed 30 MG PO DAILY October 12, 2022 3:01pm May 10, 2023 4:39pm simvastatin 20 mg oral tablet (18 sources) HMG-CoA Reductase Inhibitor Start: 01-06-2016 End: 01-12-2024 simvastatin (ZOCOR) 20 mg tablet End: 07-05-2019 Simvastatin (ZOCOR PO) Take by mouth 0 07/05/2019 Discontinued (LIST CLEANUP) Timolol (2 sources) beta-Adrenergic Daisy Start: 12-19-2021 Timolo l Active 1 DRP OPHTHALMIC DAILY December 19, 2021 1:00am Start: 12-19-2021 Timolol Active 1 DRP OPHTHALMIC DAILY December 19, 2021 12:00am Completed/Discontinued Medications Medication Drug Class(es) Dates Sig (Normalized) Sig (Original) empagliflozin 25 mg oral tablet (4 sources) Sodium-Glucose Cotransporter 2 Inhibitor Start: 04-01-2021 End: 12-19-2021 take 25 mg by mouth once daily Empagliflozin Discontinued 25 MG PO DAILY May 01, 2021 12:00am December 19, 2021 6:34pm escitalopram 10 mg oral tablet (16 sources) Serotonin Reuptake Inhibitor Start: 07-25-2019 End: 01-12-2024 take 10 mg by mouth once daily Escitalopram Oxalate Discontinued 10 MG PO DAILY October 12, 2022 3:01pm January 01, 2023 4:42pm Start: 07-11-2019 take 1 tablet by gerald th once daily escitalopram (LEXAPRO) 10 MG tablet Take 1 tablet by mouth daily 30 tablet 0 07/11/2019 Active gabapentin 100 mg oral capsule (2 sources) Anti-epileptic Agent Start: 11-16-2018 End: 03-16-2019 take 200 mg by mouth four times daily Gabapentin Discontinued 200 MG PO .qid 360 November 16, 2018 1:00am March 16, 2019 12:06am glimepiride 2 mg oral tablet (9 sources) Sulfonylurea Start: 05-01-2021 End: 01-12-2024 take 2 mg by mouth once daily Glimepiride Discontinued 2 MG PO DAILY October 12, 2022 3:01pm January 01, 2023 4:42pm glyBURIDE 5 mg oral tablet (12 sources) Sulfonylurea Start: 01-03-2020 End: 04-01-2021 take 2.5 mg by mouth once daily Glyburide Discontinued 2.5 MG PO DAILY February 01, 2020 12:55pm April 01, 2021 4:16pm Start: 12-06-2018 End: 07-25-2019 take 5 mg by mouth twice daily Glyburide Discontinued 5 MG PO TWICE A DAY 60 December 28, 2018 1:00am July 25, 2019 7:09pm Start: 10-05-2018 End: 12-28-2018 take 10 mg by mouth once daily Glyburide Discontinued 10 MG PO DAILY October 05, 2018 1:00am December 28, 2018 7:58pm Start: 11-08-2013 glyBURIDE 5 mg tablet Take 2 tabs twice daily 120 tablet 5 11/08/2013 Active glyBURIDE / metFORMIN (1 source) Biguanide, Sulfonylurea End: 07-05-2019 glyBURIDE-metFORMIN (GLUCOVANCE PO) Take by mouth 0 07/05/2019 Discontinued (LIST CLEANUP) ibuprofen 200 mg oral tablet (1 source) Nonsteroidal Anti-inflammatory Drug Start: 12-07-2018 IBUPROFEN 200 MG TABS 2 tablets every 4 hours as needed IBUPROFEN [id number] Osman Salter MD latanoprost 0.05 mg/ml ophthalmic solution (2 sources) Prostaglandin Analog Start: 12-19-2021 End: 01-27-2022 Latanoprost Discontinued 1 DRP OPHTHALMIC DAILY December 19, 2021 1:00am January 27, 2022 8:13pm losartan potassium 25 mg oral tablet (16 sources) Angiotensin 2 Receptor Daisy Start: 04-01-2021 End: 01-12-2024 take 25 mg by mouth once daily Losartan Discontinued 25 MG PO DAILY 90 February 13, 2022 12:37pm January 01, 2023 4:42pm Start: 01-06-2016 End: 03-07-2019 losartan (COZAAR) 100 mg tab let metFORMIN hydrochloride 1000 mg oral tablet (20 sources) Biguanide Start: 12-19-2021 End: 01-12-2024 take 1000 mg by mouth twice daily Metformin Discontinued 1000 MG PO TWICE A DAY 90 October 12, 2022 2:59pm January 01, 2023 4:42pm Start: 05-07-2020 End: 12-19-2021 take 500 mg by mouth twice daily Metformin Discontinued 500 MG PO TWICE A DAY 60 May 09, 2020 4:59pm December 19, 2021 6:38pm Start: 10-05-2018 End: 05-07-2020 take 1000 mg by mouth twice daily Metformin Discontinued 1000 MG PO TWICE A DAY 180 January 03, 2020 6:17pm May 07, 2020 8:31pm On Hold: Order Changed Start: 11-08-2013 metFORMIN 500 mg tablet Take 2 tabs twice daily 120 tablet 5 11/08/2013 Active End: 07-05-2019 METFORMIN HCL ER PO Take by mouth 0 07/05/2019 Discontinued (LIST CLEANUP) naproxen 500 mg oral tablet (2 sources) Nonsteroidal Anti-inflammatory Drug Start: 10-05-2018 End: 01-03-2020 take 500 mg by mouth twice daily Naproxen Discontinued 500 MG PO TWICE A DAY 60 October 05, 2018 1:00am January 03, 2020 6:16pm olmesartan medoxomil 20 mg oral tablet (7 sources) Angiotensin 2 Receptor Daisy Start: 03-07-2019 End: 04-01-2021 take 20 mg by mouth once daily Olmesartan Discontinued 20 MG PO DAILY May 07, 2020 8:32pm April 01, 2021 4:17pm Problems Active Problems Problem Classification Problem Date Documented Da te Episodic/Chronic Alcohol-related disorders (4 sources) Alcoholism; Translations: [Alcohol dependence, uncomplicated] 04-02-2021 Chronic Allergic reactions (2 sources) Contact dermatitis due to poison que; Translations: [Allergic contact dermatitis due to plants, except food] 05-01-2021 Episodic Anxiety disorders (1 source) Anxiety disorder; Translations: [Anxiety disorder] 07-09-2019 Chronic Cataract (4 sources) Bilateral cataracts; Translations: [Unspecified cataract] Onset: 01-28-2015 12-21-2021 Chronic Deficiency and other anemia (2 sources) Anemia; Translations: [Anemia, unspecified] 12-19-2021 Episodic Diabetes mellitus with complications (7 sources) Type II diabetes mellitus uncontrolled; Translations: [Uncontrolled type 2 diabetes mellitus] Onset: 03-16-2024 Resolved: 07-15-2015 05-07-2020 Chronic Diabetes mellitus without complication (2 sources) Type 2 diabetes mellitus without complication; Translations: [Type 2 diabetes mellitus without complications] 07-13-2016 Chronic Disorders of lipid metabolism (4 sources) Hyperlipidemia; Translations: [Hyperlipidemia, unspecified] 12-28-2018 Chronic Essential hypertension (4 sources) Hypertensive disorder; Translations: [Essential (primary) hypertension] Onset: 11-22-2013 04-02-2021 Chronic Glaucoma (6 sources) Primary open angle glaucoma; Translations: [Primary open-angle glaucoma, unspecified eye, stage unspecified] Resolved: 07-15-2015 01-10-2021 Chronic Gout and other crystal arthropathies (1 source) Gout, unspecified; Translations: [Gout, unspecified] Onset: 08-07-2024 Chronic Hyperplasia of prostate (4 sources) Benign prostatic hyperplasia; Translations: [Benign prostatic hyperplasia without lower urinary tract symptoms] 01-10-2021 Chronic Mood disorders (3 sources) Severe recurrent major depression without psychotic features; Translations: [Depressive disorder] Onset: 07-05-2019 07-05-2019 Chronic Open wounds of head; neck; and trunk (2 sources) Laceration of head; Translations: [Laceration without foreign body of unspecified part of head, initial encounter] 03-21-2019 Episodic Osteoarthritis (1 source) Primary osteoarthritis, right wrist; Translations: [Primary osteoarthritis, right wrist] Onset: 12-07-2018 12-07-2018 Chronic Other acquired deformities (2 sources) Acquired deformity of hand; Translations: [Unspecified acquired deformity of hand, right hand] 11-30-2018 Episodic Other connective tissue disease (2 sources) Spasm; Translations: [Cramp and spasm] 11-16-2018 Episodic Other connective tissue disease (2 sources) Swelling of hand; Translations: [Other specified soft tissue disorders] 08-12-2022 Episodic Other nervous system disorders (1 source) Carpal tunnel syndrome, right upper limb; Translations: [Carpal tunnel syndrome, right upper limb] Onset: 12-07-2018 12-07-2018 Chronic Other nervous system disorders (2 sources) Carpal tunnel syndrome; Translations: [Carpal tunnel syndrome, unspecified upper limb] 11-16-2018 Chronic Other nervous system disorders (2 sources) Disorder of right median nerve; Translations: [Other lesions of median nerve, right upper limb] 11-30-2018 Chronic Other nervous system disorders (2 sources) Numbness of hand; Translations: [Anesthesia of skin] 10-05-2018 Episodic Other screening for suspected conditions (not mental disorders or infectious disease) (1 source) Elevated prostate specific antigen [PSA]; Translations: [Elevated prostate specific antigen [PSA]] Onset: 06-14-2024 Episodic Past or Other Problems Problem Classification Problem Date Documented Da te Episodic/Chronic Diabetes mellitus without complication (2 sources) Diabetes mellitus without complication 06-01-2022 Unclassified (1 source) Problem Results Test Name Value Interpretation Reference Range Facility PSA,Total- Diagnosticon 07-02 PSA, DIAGNOSTIC 5.48 ng/mL High 0.0-4.0 [facility] Comment on above: Result Comment: This test was performed using the TPSA assay method for the [employer] chemistry system. Values obtained with different assay methods cannot be used interchangably. When changing PSA assays in the course of monitoring a patient, additional sequential testing should be carried out to confirm baseline values. Performed By: #### L [id number], L501.1400 #### [facility] [address] [place], [address] Uric Acidon 07-14-2024 URIC 5.6 mg/dL Normal 3.5-7.2 [facility] Comment on above: Result Comment: The drugs N-Acetylcysteine and Metamizole may falsely depress this assay. Performed By: #### L [id number], L501.1400 #### [facility] [address] [place], [address] PSA,Total- Diagnosticon 05-02 PSA, DIAGNOSTIC 6.26 ng/mL High 0.0-4.0 [facility] Comment on above: Result Comment: This test was performed using the TPSA assay method for the [employer] chemistry system. Values obtained with different assay methods cannot be used interchangably. When changing PSA assays in the course of monitoring a patient, additional sequential testing should be carried out to confirm baseline values. Performed By: #### L [id number] #### [facility] [address] [place], [address] [facility] ETHEL NORRIS ([id number]) 1950 Date Time Provider Department 04/14/24 LIZZY WHITEHEAD [facility] During your visit today, we recorded the following information about you: Lizzy Whitehead 04/14/2024 12:47 PM Signed ANNUAL MEDICARE WELLNESS VISIT OUTREACH Outreach attempt to contact patient and schedule Medicare wellness. Patient identified by name and date of : NO Outreach outcome: Unable to make contact: 3rd attempt Unable to leave a message ?This is Lizzy Whitehead calling from [facility]. No associated primary care provider noticed that you're due for your Medicare wellness visit. They asked me to call and assist you with scheduling an appointment with your primary care office. Can I set that up for you? No Follow up needed:No If the patient asks what a Medicare Wellness visit is: The Medicare wellness visit isn't an exam. It is a great way to get up-to-date with your provider's care team. The purpose of the Annual Wellness Visit under Medicare is to paint a picture of your current state of health and to create a baseline for future care. Any additional test or labs that may be required as a result of the findings of your annual wellness visit would be billed separately by your doctor and would fall under a different benefit than your annual wellness visit. Medicare also covers a number of other preventative services at no cost such as preventative cancer screenings, bone density measurement, and flu shots. Your visit may include: A review of your medical and family history. A review of your current providers and prescriptions. Height, weight, blood pressure, and other routine measurements. Personalized health advice. A list of risk factors and treatment options for you. A screening schedule (like a checklist) for appropriate preventive services. Lizzy Whitehead Allergies As of Date: 04/14/2024 (No Known Allergies) Date Reviewed: 02/27/2020 Reviewed by: Lalo Rudolph (Rn), RN - Fully Assessed Reason for Visit: Appointment [[id number]] Cmt: To verify pcp, phone was picked up, then disconnected Prescriptions as of 04/14/2024 - simvastatin (ZOCOR) 20 mg tablet - losartan (COZAAR) 100 mg tablet - bimatoprost (LUMIGAN) 0.01 % drop ophthalmic drops Use 1 Drop in both eyes once daily. - lisinopril 20 mg tablet Take 1 tablet by mouth once daily. - glyBURIDE 5 mg tablet Take 2 tabs twice daily - metFORMIN 500 mg tablet Take 2 tabs twice daily Problem List As Of Date 04/14/2024 Noted Resolved Primary open angle glaucoma [H40.1190] Controlled type 2 diabetes mellitus without com* Background diabetic retinopathy [E11.3299] 07/15/2015 Borderline glaucoma with ocular hypertension [H* 07/15/2015 Hypertension [I10] 11/22/2013 Hyperlipidemia [E78.5] EtOH dependence (HCC) [F10.20] BPH (benign prostatic hypertrophy) [N40.0] Cataract [H26.9] 01/28/2015 Encounter Status:Closed by LIZZY WHITEHEAD on 04/14/24 [facility] Stephanie 03-31-2024 [facility] Telephone ([facility]) ---- ETHEL NORRIS ([id number]) 1950 M Date Time Provider Department 03/31/24 LIZZY WHITEHEAD [facility] During your visit today, we recorded the following information about you: Lizzy Whitehead 03/31/2024 8:08 AM Signed ANNUAL MEDICARE WELLNESS VISIT OUTREACH Outreach attempt to contact patient and schedule Medicare wellness. Patient identified by name and date of : NO Outreach outcome: Unable to make contact: 2nd attempt Left message ?This is Lizzy Whitehead calling from [facility]. Dr. Jim Ruelas MD noticed that you're due for your Medicare wellness visit. They asked me to call and assist you with scheduling an appointment with your primary care office. Can I set that up for you? No Follow up needed:No If the patient asks what a Medicare Wellness visit is: The Medicare wellness visit isn't an exam. It is a great way to get up-to-date with your provider's care team. The purpose of the Annual Wellness Visit under Medicare is to paint a picture of your current state of health and to create a baseline for future care. Any additional test or labs that may be required as a result of the findings of your annual wellness visit would be billed separately by your doctor and would fall under a different benefit than your annual wellness visit. Medicare also covers a number of other preventative services at no cost such as preventative cancer screenings, bone density measurement, and flu shots. Your visit may include: A review of your medical and family history. A review of your current providers and prescriptions. Height, weight, blood pressure, and other routine measurements. Personalized health advice. A list of risk factors and treatment options for you. A screening schedule (like a checklist) for appropriate preventive services. Lizzy Whitehead Allergies As of Date: 03/31/2024 (No Known Allergies) Date Reviewed: 02/27/2020 Reviewed by: Lalo Rudolph (Rn), RN - Fully Assessed Reason for Visit: Appointment [186] Prescriptions as of 03/31/2024 - simvastatin (ZOCOR) 20 mg tablet - losartan (COZAAR) 100 mg tablet - bimatoprost (LUMIGAN) 0.01 % drop ophthalmic drops Use 1 Drop in both eyes once daily. - lisinopril 20 mg tablet Take 1 tablet by mouth once daily. - glyBURIDE 5 mg tablet Take 2 tabs twice daily - metFORMIN 500 mg tablet Take 2 tabs twice daily Problem List As Of Date 03/31/2024 Noted Resolved Primary open angle glaucoma [H40.1190] Controlled type 2 diabetes mellitus without com* Background diabetic retinopathy [E11.3299] 07/15/2015 Borderline glaucoma with ocular hypertension [H* 07/15/2015 Hypertension [I10] 11/22/2013 Hyperlipidemia [E78.5] EtOH dependence (HCC) [F10.20] BPH (benign prostatic hypertrophy) [N40.0] Cataract [H26.9] 01/28/2015 Encounter Status:Closed by LIZZY WHITEHEAD on 03/31/24 [facility] Hemoglobin A1con 03-07-2024 HbA1c (Bld) [Mass fraction] 7.7 % High 3.8-5.6 [facility] Comment on above: Result Comment: Norm al < 5.7 % Prediabetic 5.7 - 6.4 % Diabetic >or= 6.5 % Please note range changes. Performed By: #### L 501.1679, L501.9943 #### [facility] [place], [address] PSA,Total- Diagnosticon PSA, DIAGNOSTIC 4.54 ng/mL High 0.0-4.0 [facility] Comment on above: Result Comment: This test was performed using the TPSA assay method for the [employer] chemistry system. Values obtained with different assay methods cannot be used interchangably. When changing PSA assays in the course of monitoring a patient, additional sequential testing should be carried out to confirm baseline values. Performed By: #### L [id number], L501.9985 #### [facility] [address] [place], [place], [id number] Absolute lymphocyte countOrd ered By: María Murphy on 01-12-2024 Lymphocytes Auto (Unsp spec) [#/Vol] 1.56 10*3/uL 0.83-4.51 [facility] Automated lymphocyte count a s percentage of total leukocytesOrdered By: María Murphy on 01-12-2024 Lymphocytes/100 WBC Auto (Unsp spec) 14.7 % 19-41 [facility] Basophil percentageOrdered B y: María Murphy on 01-12-2024 Basophils/100 WBC (Bld) 0.5 % 0-1 [facility] Bilirubin [Mass/Vol] 0.40 mg/dL 0.20-1.00 [facility] Comment on above: For patients on eltr ombopag therapy, use of Dimension [place] TBIL is not recommended. Chloride [Moles/Vol] 103 mmol/L 98-107 [facility] Cholesterol [Mass/Vol] 133 mg/dL <[address] [facility] Comment on above: <200 mg/dL Desirable 200-240 mg/dL Borderline >240 mg/dL High Risk Eosinophils/100 WBC (Bld) 1.2 % 0-5 [facility] Glucose [Mass/Vol] 191 mg/dL 74-106 [facility] Comment on above: Fasting Glucose resu lt greater than or equal to 126 mg/dL suggests DIABETES MELLITUS per A.D.A. criteria. Hemoglobin (Bld) [Mass/Vol] 13.0 g/dL 13.0-16.5 [facility] Monocytes/100 WBC (Bld) 6.8 % 0-10 [facility] Neutrophils (Bld) [#/Vol] 8.1 10*3/uL 2.0-7.7 [facility] Neutrophils/100 WBC (Bld) 76.2 % 47-70 [facility] Potassium [Moles/Vol] 5.2 mmol/L 3.5-5.1 [facility] Protein [Mass/Vol] 7.5 g/dL 6.4-8.2 [facility] Sodium [Moles/Vol] 137 mmol/L 136-145 [facility] Triglyceride [Mass/Vol] 230 mg/dL <199 [facility] Comment on above: The drugs N-Acetylcy steine and Metamizole may falsely depress this assay.Serum Triglycerides Reference Interval Normal <150 mg/dL Borderline high 150 - 199 mg/dL High 200 - 499 mg/dL Very High > or = 500 mg/dL WBC (Bld) [#/Vol] 10.6 10*3/uL 4.4-11.0 [facility] CBC W/Diff, Automatedon 12-30-2023 Absolute Lymph 1.56 X10 3/uL Normal 0.83-4.51 [facility] Comment on above: Performed By: #### L [id number], L501.9985, L100.0100, L500.4050, L500.4100 #### [facility] [address] [place], [address] Absolute Neut 8.1 X10 3/uL High 2.0-7.7 [facility] Comment on above: Performed By: #### L [id number], L501.9985, L100.0100, L500.4050, L500.4100 #### [facility] [address] [place], [address] Basophils/100 WBC (Bld) 0.5 % Normal 0-1 [facility] Comment on above: Performed By: #### L [id number], L501.9985, L100.0100, L500.4050, L500.4100 #### [facility] [address] [place], [address] Eosinophils/100 WBC (Bld) 1.2 % Normal 0-5 [facility] Comment on above: Performed By: #### L [id number], L501.9985, L100.0100, L500.4050, L500.4100 #### [facility] [address] [place], [address] Erythrocyte distribution width (RBC) [Ratio] 13.7 % Normal 11.6-14.6 [facility] Comment on above: Performed By: #### L [id number], [id number], L100.0100, L500.4050, L500.4100 #### [facility] [address] [place], [address] Hematocrit (Bld) [Volume fraction] 40.8 % Normal 40-54 [facility] Comment on above: Performed By: #### L [id number], [id number], L100.0100, L500.4050, L500.4100 #### [facility] [address] [place], [address] Hemoglobin (Bld) [Mass/Vol] 13.0 g/dL Normal 13.0-16.5 [facility] Comment on above: Performed By: #### L [id number], L501.9985, L100.0100, L500.4050, L500.4100 #### [facility] [address] [place], [address] IG% 0.600 Normal 0.0-0.9 [facility] Comment on above: Result Comment: IG% - Immature Granulocytes (promyelocytes, myelocytes and metamyelocytes) > 1% indicates that a LEFT SHIFT is Present. Performed By: #### L [id number], L501.9985, L100.0100, L500.4050, L500.4100 #### [facility] [address] [place], [address] Lymphocytes/100 WBC (Bld) 14.7 % Low 19-41 [facility] Comment on above: Performed By: #### L [id number], [id number], L100.0100, L500.4050, L500.4100 #### [facility] [address] [place], [address] MCH (RBC) [Entitic mass] 31.4 pg Normal 27.0-32.0 [facility] Comment on above: Performed By: #### L 501.9910, L501.9985, L100.0100, L500.4050, L500.4100 #### [facility] [address] [place], [address] MCHC (RBC) [Mass/Vol] 31.9 g/dL Low 32-36 [facility] Comment on above: Performed By: #### L 501.9910, L501.9985, L100.0100, L500.4050, L500.4100 #### [facility] [facility] [address] [place], [address] MCV (RBC) [Entitic vol] 98.6 fL High 80-94 [facility] Comment on above: Performed By: #### L 501.9910, L501.9985, L100.0100, L500.4050, L500.4100 #### [facility] [address] [place], [address] Monocytes/100 WBC (Bld) 6.8 % Normal 0-10 [facility] Comment on above: Performed By: #### L 501.9910, L501.9985, L100.0100, L500.4050, L500.4100 #### [facility] [address] [place], [address] Neutrophils/100 WBC (Bld) 76.2 % High 47-70 [facility] Comment on above: Performed By: #### L 501.9910, L501.9985, L100.0100, L500.4050, L500.4100 #### [facility] [address] [place], [address] Nucleated RBC (Bld) [#/Vol] 0 10*3/uL Normal 0-5 [facility] Comment on above: Performed By: #### L 501.9910, L501.9985, L100.0100, L500.4050, L500.4100 #### [facility] [address] [place], [address] Platelet mean volume (Bld) [Entitic vol] 10.8 fL Normal 6.2-12.0 [facility] Comment on above: Performed By: #### L 501.9910, L501.9985, L100.0100, L500.4050, L500.4100 #### [facility] [address] [place], [address] Platelets (Bld) [#/Vol] 203 10*3/uL Normal 150-450 [facility] Comment on above: Performed By: #### L 501.9910, L501.9985, L100.0100, L500.4050, L500.4100 #### [facility] [address] [place], [address] RBC (Bld) [#/Vol] 4.14 10*6/uL Low 4.6-6.2 [facility] Comment on above: Performed By: #### L 501.9910, L501.9985, L100.0100, L500.4050, L500.4100 #### [facility] [address] [place], [address] RDW SD 49.1 fl High 35.1-43.9 [facility] Comment on above: Performed By: #### L 501.9910, L501.9985, L100.0100, L500.4050, L500.4100 #### [facility] [address] [place], [address] WBC (Bld) [#/Vol] 10.6 10*3/uL Normal 4.4-11.0 [facility] Comment on above: Performed By: #### L 501.9910, L501.9985, L100.0100, L500.4050, L500.4100 #### [facility] [address] [place], [address] Comprehensive Metabolic Prof ilon 01-12-2024 Albumin [Mass/Vol] 3.8 g/dL Normal 3.2-5.0 [facility] Comment on above: Performed By: #### L 501.9910, L501.9985, L100.0100, L500.4050, L500.4100 #### [facility] [address] [place], [address] Albumin/Globulin [Mass ratio] 1.0 {ratio} Normal 0.9-2.4 [facility] Comment on above: Performed By: #### L 501.9910, L501.9985, L100.0100, L500.4050, L500.4100 #### [facility] [address] [place], [address] ALK P 30 U/L Low 45-117 [facility] Comment on above: Performed By: #### L 501.9910, L501.9985, L100.0100, L500.4050, L500.4100 #### [facility] [address] [place], [address] ALT [Catalytic activity/Vol] 29 U/L Normal 16-61 [facility] Comment on above: Performed By: #### L 501.9910, L501.9985, L100.0100, L500.4050, L500.4100 #### [facility] [address] [place], [address] AST [Catalytic activity/Vol] 20 U/L Normal 15-37 [facility] Comment on above: Performed By: #### L 501.9910, L501.9985, L100.0100, L500.4050, L500.4100 #### [facility] [address] [place], [address] Bilirubin [Mass/Vol] 0.40 mg/dL Normal 0.20-1.00 [facility] Comment on above: Result Comment: For patients on eltrombopag therapy, use of Dimension [place] TBIL is not recommended. Performed By: #### L 501.9910, L501.9985, L100.0100, L500.4050, L500.4100 #### [facility] [address] [place], [address] BUN/CRE 21.3 RATIO High 10-20 [facility] Comment on above: Performed By: #### L 501.9910, L501.9985, L100.0100, L500.4050, L500.4100 #### [facility] [address] [place], [address] CA,Total 9.6 mg/dL Normal 8.5-10.1 [facility] Comment on above: Performed By: #### L 501.9910, L501.9985, L100.0100, L500.4050, L500.4100 #### [facility] [address] [place], [address] Chloride [Moles/Vol] 103 mmol/L Normal 98-107 [facility] Comment on above: Performed By: #### L 501.9910, L501.9985, L100.0100, L500.4050, L500.4100 #### [facility] [address] [place], [address] CO2 [Moles/Vol] 27.0 mmol/L Normal 21.0-32.0 [facility] Comment on above: Performed By: #### L 501.9910, L501.9985, L100.0100, L500.4050, L500.4100 #### [facility] [address] [place], [address] Creatinine [Mass/Vol] 1.36 mg/dL High 0.70-1.30 [facility] Comment on above: Result Comment: The validity of the calculated GFR GFRAA in patients over 70 years has not been determined. Clinical correlation is essential. Performed By: #### L 501.9910, L501.9985, L100.0100, L500.4050, L500.4100 #### [facility] [address] [place], [address] EST GFR - AA 66 mL/min Normal >60 [facility] Comment on above: Result Comment: Afri can Swazi GFR Calc Performed By: #### L 501.9910, L501.9985, L100.0100, L500.4050, L500.4100 #### [facility] [address] [place], [address] GAP 7 Normal 5-15 [facility] Comment on above: Performed By: #### L 501.9910, L501.9985, L100.0100, L500.4050, L500.4100 #### [facility] [address] [place], [address] GFR/1.73 sq M.predicted among non-blacks MDRD (S/P/Bld) [Vol rate/Area] 55 mL/min/{1.73_m2} Low >60 [facility] Comment on above: Result Comment: Non- GFR Calc Performed By: #### L 501.9910, L501.9985, L100.0100, L500.4050, L500.4100 #### [facility] [address] [place], [address] Globulin (S) [Mass/Vol] 3.7 g/dL Normal 2.2-4.2 [facility] Comment on above: Performed By: #### L 501.9910, L501.9985, L100.0100, L500.4050, L500.4100 #### [facility] [address] [place], [address] Glucose [Mass/Vol] 191 mg/dL High 74-106 [facility] Comment on above: Result Comment: Fast ing Glucose result greater than or equal to 126 mg/dL suggests DIABETES MELLITUS per A.D.A. criteria. Performed By: #### L 501.9910, L501.9985, L100.0100, L500.4050, L500.4100 #### [facility] [address] [place], [address] Potassium [Moles/Vol] 5.2 mmol/L High 3.5-5.1 [facility] Comment on above: Performed By: #### L 501.9910, L501.9985, L100.0100, L500.4050, L500.4100 #### [facility] [address] [place], [address] Sodium [Moles/Vol] 137 mmol/L Normal 136-145 [facility] Comment on above: Performed By: #### L 501.9910, L501.9985, L100.0100, L500.4050, L500.4100 #### [facility] [address] [place], [address] T PROT 7.5 g/dL Normal 6.4-8.2 [facility] Comment on above: Performed By: #### L 501.9910, L501.9985, L100.0100, L500.4050, L500.4100 #### [facility] [address] [place], [address] Urea nitrogen [Mass/Vol] 29 mg/dL High 7-18 [facility] Comment on above: Performed By: #### L 501.9910, L501.9985, L100.0100, L500.4050, L500.4100 #### [facility] [address] [place], [address] Determination of erythrocyte mean corpuscular volume (MCV)Ordered By: María Murphy on 01-12-2024 MCV (RBC) [Entitic vol] 98.6 fL 80-94 [facility] Erythrocyte distribution wid th ratioOrdered By: María Murphy on 01-12-2024 Erythrocyte distribution width (RBC) [Ratio] 13.7 % 11.6-14.6 [facility] Erythrocyte distribution wid th standard deviationOrdered By: María Murphy on 01-12-2024 Erythrocyte distribution width (RBC) [Entitic vol] 49.1 fL 35.1-43.9 [facility] Hematocrit Auto (Bld) [Volum e fraction]Ordered By: María Murphy on 01-12-2024 Hematocrit (Bld) [Volume fraction] 40.8 % 40-54 [facility] Hemoglobin A1con 01-12-2024 HbA1c (Bld) [Mass fraction] 8.1 % High 3.8-5.6 [facility] Comment on above: Result Comment: Norm al < 5.7 % Prediabetic 5.7 - 6.4 % Diabetic >or= 6.5 % Please note range changes. Performed By: #### L 501.9910, L501.9985, L100.0100, L500.4050, L500.4100 #### [facility] [address] [place], [address] Immature granulocytes/100 WB C Auto (Bld)Ordered By: María Murphy on 01-12-2024 Immature granulocytes/100 WBC (Bld) 0.600 % 0.0-0.9 [facility] Comment on above: IG% - Immature Granu locytes (promyelocytes, myelocytes and metamyelocytes) > 1% indicates that a LEFT SHIFT is Present. Laboratory - Chemistry and C hemistry - challengeOrdered By: María Murphy on 01-12-2024 Albumin/Globulin [Mass ratio] 1.0 {ratio} 0.9-2.4 [facility] ALP [Catalytic activity/Vol] 30 U/L 45-117 [facility] ALT [Catalytic activity/Vol] 29 U/L 16-61 [facility] Cholesterol in HDL [Mass/Vol] 40 mg/dL >40 [facility] Comment on above: The drugs N-Acetylcy steine and Metamizole may falsely depress this assay. Reference Range HDL <40 mg/dL Low HDL Cholesterol HDL >or= 60 mg/dL High HDL Cholesterol Cholesterol in LDL [Mass/Vol] 47 mg/dL 0-130 [facility] CO2 [Moles/Vol] 27.0 mmol/L 21.0-32.0 [facility] Globulin (S) [Mass/Vol] 3.7 g/dL 2.2-4.2 [facility] Urea nitrogen/Creatinine [Mass ratio] 21.3 mg/mg 10-20 [facility] - Hematology and Cell countsOrdered By: María Murphy on 01-12-2024 MCH (RBC) [Entitic mass] 31.4 pg 27.0-32.0 [facility] MCHC (RBC) [Mass/Vol] 31.9 g/dL 32-36 [facility] Nucleated RBC/100 WBC (Bld) [Ratio] 0 % 0-5 [facility] Platelet mean volume (Bld) [Entitic vol] 10.8 fL 6.2-12.0 [facility] Platelets (Bld) [#/Vol] 203 10*3/uL 150-450 [facility] Lipid Profileon 01-12-2024 Cholesterol [Mass/Vol] 133 mg/dL Normal [address] [facility] Comment on above: Result Comment: <200 mg/dL Desirable 200-240 mg/dL Borderline >240 mg/dL High Risk Performed By: #### L 501.9910, L501.9985, L100.0100, L500.4050, L500.4100 #### [facility] [address] [place], [address] Cholesterol in HDL [Mass/Vol] 40 mg/dL Normal [facility] Comment on above: Result Comment: The drugs N-Acetylcysteine and Metamizole may falsely depress this assay. Reference Range HDL <40 mg/dL Low HDL Cholesterol HDL >or= 60 mg/dL High HDL Cholesterol Performed By: #### L 501.9910, L501.9985, L100.0100, L500.4050, L500.4100 #### [facility] [address] [place], [address] Cholesterol in LDL [Mass/Vol] 47 mg/dL Normal 0-130 [facility] Comment on above: Performed By: #### L 501.9910, L501.9985, L100.0100, L500.4050, L500.4100 #### [facility] [address] [place], [address] Cholesterol in VLDL [Mass/Vol] 46 mg/dL High 5-40 [facility] Comment on above: Performed By: #### L 501.9910, L501.9985, L100.0100, L500.4050, L500.4100 #### [facility] [address] [place], [address] Triglyceride [Mass/Vol] 230 mg/dL High [facility] Comment on above: Result Comment: The drugs N-Acetylcysteine and Metamizole may falsely depress this assay. Serum Triglycerides Reference Interval Normal <150 mg/dL Borderline high 150 - 199 mg/dL High 200 - 499 mg/dL Very High > or = 500 mg/dL Performed By: #### L 501.9910, L501.9985, L100.0100, L500.4050, L500.4100 #### [facility] [address] [facility] [place], [address] No Panel InformationOrdered By: María Murphy on 01-12-2024 Estimated GFR (MDRD) Amer 66 mL/min >60 [facility] Comment on above: GFR Calc Estimated GFR (MDRD) Non-Af Amer 55 mL/min >60 [facility] Comment on above: Non- GFR Calc Prostate Specific Antigen Screen 9.65 ng/mL 0.00-4.00 [facility] Comment on above: This test was perfor med using the TPSA assay method for the[employer] chemistry system. Values obtained with differentassay methods cannot be used interchangably.When changing PSA assays in the course of monitoring apatient, additional sequential testing should be carriedout to confirm baseline values. VLDL Cholesterol 46 mg/dL 5-40 [facility] PSA,Total - Annual Screenon 01-12-2024 PSA,TOT SCREEN 9.65 ng/mL High 0.00-4.00 [facility] Comment on above: Result Comment: This test was performed using the TPSA assay method for the [employer] chemistry system. Values obtained with different assay methods cannot be used interchangably. When changing PSA assays in the course of monitoring a patient, additional sequential testing should be carried out to confirm baseline values. Performed By: #### L 501.9910, L501.9985, L100.0100, L500.4050, L500.4100 #### [facility] [address] [place], [address] RBC Auto (Bld) [#/Vol]Ordere d By: María Murphy on 01-12-2024 RBC (Bld) [#/Vol] 4.14 10*6/uL 4.6-6.2 [facility] Serum or plasma calcium anne urement (mass/volume)Ordered By: María Murphy on 01-12-2024 Calcium [Mass/Vol] 9.6 mg/dL 8.5-10.1 [facility] Serum or plasma creatinine m easurement (mass/volume)Ordered By: María Murphy on 01-12-2024 Creatinine [Mass/Vol] 1.36 mg/dL 0.70-1.30 [facility] Comment on above: The validity of the calculated GFR & GFRAA in patients over 70 years has not been determined. Clinical correlation is essential. Serum or plasma urea nitroge n measurement (mass/volume)Ordered By: María Murphy on 01-12-2024 Urea nitrogen [Mass/Vol] 29 mg/dL 7-18 [facility] Thin prep Papanicolaou smear with manual screeningOrdered By: María Murphy on 01-12-2024 Thin prep Papanicolaou smear with manual screening 3.8 g/dL 3.2-5.0 [facility] Thin prep Papanicolaou smear with manual screening 20 U/L 15-37 [facility] Thin prep Papanicolaou smear with manual screening 7 5-15 [facility] Whole blood hemoglobin A1c/t otal hemoglobin ratio (mass fraction)Ordered By: María Murphy on 01-12-2024 HbA1c (Bld) [Mass fraction] 8.1 % 3.8-5.6 [facility] Comment on above: Normal < 5.7 % Predi abetic 5.7 - 6.4 % Diabetic >or= 6.5 % Please note range changes. Absolute lymphocyte countOrd ered By: María Murphy on 01-01-2023 Lymphocytes Auto (Unsp spec) [#/Vol] 2.06 10*3/uL 0.83-4.51 [facility] Basophil percentageOrdered B y: María Murphy on 01-01-2023 Basophils/100 WBC (Bld) 1.0 % 0-1 [facility] Bilirubin [Mass/Vol] 0.30 mg/dL 0.20-1.00 [facility] Comment on above: For patients on eltr ombopag therapy, use of Dimension [place] TBIL is not recommended. Chloride [Moles/Vol] 101 mmol/L 98-107 [facility] Cholesterol [Mass/Vol] 136 mg/dL <[address] [facility] Comment on above: <200 mg/dL Desirable 200-240 mg/dL Borderline >240 mg/dL High Risk Eosinophils/100 WBC (Bld) 1.7 % 0-5 [facility] Glucose [Mass/Vol] 206 mg/dL 74-106 [facility] Comment on above: Glucose result great er than or equal to 200 mg/dLsuggests DIABETES MELLITUS per A.D.A. criteria. Neutrophils (Bld) [#/Vol] 4.1 10*3/uL 2.0-7.7 [facility] Neutrophils/100 WBC (Bld) 58.9 % 47-70 [facility] Potassium [Moles/Vol] 4.9 mmol/L 3.5-5.1 [facility] Protein [Mass/Vol] 7.4 g/dL 6.4-8.2 [facility] Sodium [Moles/Vol] 135 mmol/L 136-145 [facility] Triglyceride [Mass/Vol] 347 mg/dL <199 [facility] Comment on above: The drugs N-Acetylcy steine and Metamizole may falsely depress this assay.Serum Triglycerides Reference Interval Normal <150 mg/dL Borderline high 150 - 199 mg/dL High 200 - 499 mg/dL Very High > or = 500 mg/dL WBC (Bld) [#/Vol] 7.0 10*3/uL 4.4-11.0 [facility] Blood erythrocytes count (nu mber/volume)Ordered By: María Murphy on 01-01-2023 RBC (Bld) [#/Vol] 4.18 10*6/uL 4.6-6.2 [facility] Blood hemoglobin measurement (mass/volume)Ordered By: María Murphy on 01-01-2023 Hemoglobin (Bld) [Mass/Vol] 13.4 g/dL 13.0-16.5 [facility] Blood lymphocytes/100 leukoc ytesOrdered By: María Murphy on 01-01-2023 Lymphocytes/100 WBC (Bld) 29.6 % 19-41 [facility] Blood monocytes/100 leukocyt esOrdered By: María Murphy on 01-01-2023 Monocytes/100 WBC (Bld) 8.5 % 0-10 [facility] Blood platelet mean volumeOr dered By: María Murphy on 01-01-2023 Platelet mean volume (Bld) [Entitic vol] 11.7 fL 6.2-12.0 [facility] Determination of erythrocyte mean corpuscular volume (MCV)Ordered By: María Murphy on 01-01-2023 MCV (RBC) [Entitic vol] 94.7 fL 80-94 [facility] Hematocrit Auto (Bld) [Volum e fraction]Ordered By: María Murphy on 01-01-2023 Hematocrit (Bld) [Volume fraction] 39.6 % 40-54 [facility] - Chemistry and C hemistry - challengeOrdered By: María Murphy on 01-01-2023 ALP [Catalytic activity/Vol] 30 U/L 45-117 [facility] ALT [Catalytic activity/Vol] 30 U/L 16-61 [facility] CO2 [Moles/Vol] 28.0 mmol/L 21.0-32.0 [facility] Globulin (S) [Mass/Vol] 3.6 g/dL 2.2-4.2 [facility] Urea nitrogen/Creatinine [Mass ratio] 18.1 mg/mg 10-20 [facility] - Hematology and Cell countsOrdered By: María Murphy on 01-01-2023 Erythrocyte distribution width (RBC) [Entitic vol] 45.3 fL 35.1-43.9 [facility] Erythrocyte distribution width (RBC) [Ratio] 13.1 % 11.6-14.6 [facility] Immature granulocytes/100 WBC (Bld) 0.300 % 0.0-0.9 [facility] Comment on above: IG% - Immature Granu locytes (promyelocytes, myelocytes and metamyelocytes) > 1% indicates that a LEFT SHIFT is Present. MCH (RBC) [Entitic mass] 32.1 pg 27.0-32.0 [facility] Nucleated RBC/100 WBC (Bld) [Ratio] 0 % 0-5 [facility] MCHC Auto (RBC) [Mass/Vol]Or dered By: María Murphy on 01-01-2023 MCHC (RBC) [Mass/Vol] 33.8 g/dL 32-36 [facility] No Panel InformationOrdered By: María Murphy on 01-01-2023 Estimated GFR (MDRD) Amer 65 mL/min >60 [facility] Comment on above: GFR Calc Estimated GFR (MDRD) Non-Af Amer 54 mL/min >60 [facility] Comment on above: Non- GFR Calc Prostate Specific Antigen Screen 3.30 ng/mL 0.00-4.00 [facility] Comment on above: This test was perfor med using the TPSA assay method [facility]. Values obtained with differentassay methods cannot be used interchangably.When changing PSA assays in the course of monitoring apatient, additional sequential testing should be carriedout to confirm baseline values. Platelets bldOrdered By: James Murphy on 01-01-2023 Platelets (Bld) [#/Vol] 150 10*3/uL 150-450 [facility] Serum or plasma albumin anne urement (mass/volume)Ordered By: María Murphy on 01-01-2023 Albumin [Mass/Vol] 3.8 g/dL 3.2-5.0 [facility] Serum or plasma albumin/glob ulin mass ratioOrdered By: María Murphy on 01-01-2023 Albumin/Globulin [Mass ratio] 1.1 {ratio} 0.9-2.4 [facility] Serum or plasma calcium anne urement (mass/volume)Ordered By: María Murphy on 01-01-2023 Calcium [Mass/Vol] 9.8 mg/dL 8.5-10.1 [facility] Serum or plasma cholesterol in HDL measurement (mass/volume)Ordered By: María Murphy on 01-01-2023 Cholesterol in HDL [Mass/Vol] 32 mg/dL >40 [facility] Comment on above: The drugs N-Acetylcy steine and Metamizole may falsely depress this assay. Reference Range HDL <40 mg/dL Low HDL Cholesterol HDL >or= 60 mg/dL High HDL Cholesterol Serum or plasma cholesterol in VLDL measurement (mass/volume)Ordered By: María Murphy on 01-01-2023 Cholesterol in VLDL [Mass/Vol] 69 mg/dL 5-40 [facility] Serum or plasma creatinine m easurement (mass/volume)Ordered By: María Murphy on 01-01-2023 Creatinine [Mass/Vol] 1.38 mg/dL 0.70-1.30 [facility] Comment on above: The validity of the calculated GFR & GFRAA in patients over 70 years has not been determined. Clinical correlation is essential. Serum or plasma low density lipoprotein (LDL) cholesterol measurement (mass/volume)Ordered By: María Murphy on 01-01-2023 Cholesterol in LDL [Mass/Vol] 35 mg/dL 0-130 [facility] Serum or plasma urea nitroge n measurement (mass/volume)Ordered By: María Murphy on 01-01-2023 Urea nitrogen [Mass/Vol] 25 mg/dL 7-18 [facility] Thin prep Papanicolaou smear with manual screeningOrdered By: María Murphy on 01-01-2023 Thin prep Papanicolaou smear with manual screening 21 U/L 15-37 [facility] Thin prep Papanicolaou smear with manual screening 6 5-15 [facility] Whole blood hemoglobin A1c/t otal hemoglobin ratio (mass fraction)Ordered By: María Murphy on 01-01-2023 HbA1c (Bld) [Mass fraction] 8.8 % 3.8-5.6 [facility] Comment on above: Normal < 5.7 % Predi abetic 5.7 - 6.4 % Diabetic >or= 6.5 % Please note range changes. CNNURSEon 02-04-2021 CNNURSE Nurse Visit ([facility]OVAMD) ---- ETHEL NORRIS ([id number]) 1950 Date Time Provider Department 02/04/21 ANTONIETA JEFFERSON JR During your visit today, we recorded the following information about you: Allergies As of Date: 02/04/2021 (No Known Allergies) Date Reviewed: 02/27/2020 Reviewed by: Lalo (Elle) ELLE Rudolph - Fully Assessed Order(s):[employer] SARS-COV-2 VACCINE 2D DOSE APPT [[id number]] Order #: [id number] Prescriptions as of 02/04/2021 Sig: SIMVASTATIN 20 MG TABLET LOSARTAN 100 MG TABLET BIMATOPROST 0.01 % EYE DROPS Use 1 Drop in both eyes once * LISINOPRIL 20 MG TABLET Take 1 tablet by mouth once d* GLYBURIDE 5 MG TABLET Take 2 tabs twice daily METFORMIN 500 MG TABLET Take 2 tabs twice daily Problem List As Of Date 02/04/2021 Noted Resolved Primary open angle glaucoma [H40.1190] Controlled type 2 diabetes mellitus without com* Background diabetic retinopathy [E11.3299] 07/15/2015 Borderline glaucoma with ocular hypertension [H* 07/15/2015 Hypertension [I10] 11/22/2013 Hyperlipidemia [E78.5] EtOH dependence (HCC) [F10.20] BPH (benign prostatic hypertrophy) [N40.0] Cataract [H26.9] 01/28/2015 Encounter Status:Open [facility] ALLIED HEALTHon 02-27-2020 ALLIED HEALTH HNO ID: [id number] Author: NICHOLAS Lees (Ct) Service: Radiology Author Type: Clinical Plastic Installer Type: Allied Health Filed: 02/27/2020 1:33 AM Note Text: Radiology Service Progress Note PATIENT NAME: Ethel Norris DATE OF SERVICE: February 27, 2020 TIME: 1:32 AM PATIENT IDENTITY VERIFICATION COMPLETED USING TWO (2) IDENTIFIERS: Name and Date of confirmed by patient verbally and Name and Date of confirmed by identification band. FALL SCREENING: Has the patient had 2 falls in the last year or 1 fall with injury or currently using an Ambulatory Assistive Device (Walker, Cane, Wheelchair, Crutches, etc.)? Inpatient: Screened on floor PATIENT GENDER DATA: Female. status: : No status: NO. PATIENT RELEVANT IMPLANT DATA REVIEWED: Not Applicable RADIOLOGY DEPARTMENT: CT; Exam(s) Completed: Brain and Spine PERIPHERAL IV DATA: Not applicable SIGNED BY: NICHOLAS Lees February 27, 2020 1:32 AM [facility] CT BRAIN WO IVCONon 02-27-20 CT BRAIN WO IVCON * * *Final Report* * * DATE OF EXAM: Feb 27 2020 1:27AM [facility] [id number] BRAIN WO IVCON / PROCEDURE REASON: Head trauma, headache * * * * Physician Interpretation * * * * EXAMINATION: CT BRAIN WO IVCON CLINICAL HISTORY: Head trauma, headache TECHNIQUE: Serial axial images without IV contrast were obtained from the vertex to the foramen magnum. MQ: CTBWO_3 CT Dose-Length Product (DLP): 1027 mGy*cm CT Dose Reduction Employed: No dose reduction techniques were required COMPARISON: 07/04/2019. RESULT: Post-operative change: None. Acute change: No evidence of an acute infarct or other acute parenchymal process. Hemorrhage: No evidence of acute intracranial hemorrhage. Mass Lesion / Mass Effect: There is no evidence of an intracranial mass or extraaxial fluid collection. No significant mass effect. Chronic change: None apparent. Parenchyma: There is no significant volume loss. The brain parenchyma is otherwise within normal limits for age. Ventricles: The ventricles are within normal limits of size and configuration for age. Paranasal sinuses and skull base: The visualized paranasal sinuses are grossly clear. The skull base and imaged soft tissues are unremarkable. IMPRESSION: No acute findings. Sales Agent: MEHRAN Transcribe Date/Time: Feb 27 2020 1:28A Dictated by : VILLA ANAND MD This examination was interpreted and the report reviewed and electronically signed by: VILLA ANAND MD on Feb 27 2020 1:31AM EST [id number] [facility] CT CERVICAL SPINE WO IVCONon 02-27-2020 CT CERVICAL SPINE WO IVCON * * *Final Report* * * DATE OF EXAM: Feb 27 2020 1:27AM [facility] [place] CERVICAL SPINE WO IVCON / PROCEDURE REASON: C-spine trauma, NEXUS/CCR positive * * * * Physician Interpretation * * * * EXAMINATION: CT CERVICAL SPINE WO IVCON CLINICAL HISTORY: Trauma. Some part TECHNIQUE: CT of the cervical spine without IV contrast. Spiral, high resolution axial images were obtained from the skull base to the cervicothoracic junction with sagittal and coronal planar reconstructions. MQ: CTCSPWO_5 CT Dose-Length Product (DLP): 1027 mGy*cm CT Dose Reduction Employed: No dose reduction techniques were required COMPARISON: None. RESULT: There are no fractures or prevertebral soft tissue swelling. There are mild degenerative changes of the spine most pronounced at C5-C7. There is grade 1 anterolisthesis of C4 on C5. IMPRESSION: No acute fractures. Sales Agent: MEHRAN Transcribe Date/Time: Feb 27 2020 1:34A Dictated by : VILLA ANAND MD This examination was interpreted and the report reviewed and electronically signed by: VILLA ANAND MD on Feb 27 2020 1:35AM EST [id number] [facility] ED NOTEon 02-27-2020 ED NOTE HNO ID: [id number] Author: Lalo Kay) ELLE Rudolph Service: ? Author Type: Registered Nurse Type: ED Notes Filed: 02/27/2020 2:13 AM Note Text: The patient and his spouse verbalizes understanding of discharge instructions. No additional questions or concerns at this time. Patient Vital signs stable, no acute distress noted. Patient ambulatory out of ED. Prescription(S) x 0 given. Normal [facility] ED NOTE HNO ID: [id number] Author: Lalo MoreauRn) ELLE Rudolph Service: ? Author Type: Registered Nurse Type: ED Notes Filed: 02/27/2020 1:23 AM Note Text: Patient to and from CT Scan without incident. [facility] ED NOTE HNO ID: [id number] Author: Lalo MoreauRn) ELLE Rudolph Service: ? Author Type: Registered Nurse Type: ED Notes Filed: 02/27/2020 1:25 AM Note Text: Patient reports walking to the store to buy beer when he tripped and fell, striking his head. Patient denies LOC, EMS reports laceration to back of head, wound is dressed at this time. Patient arrives with one of two hearing aides intact. [facility] ED NOTE HNO ID: [id number] Author: Lalo Kay) ELLE Rudolph Service: ? Author Type: Registered Nurse Type: ED Notes Filed: 02/27/2020 12:46 AM Note Text: Bed: ED-04 Expected date: Expected time: Means of arrival: [place] [facility] Comments: [facility] ED PROV NOTEon 02-27-2020 ED PROV NOTE HNO ID: [id number] Author: Johnny Wheeler MD Service: ? 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 used: No Head Injury Location: Occipital Time since incident: 1 hour Mechanism of injury: fall Fall: Fall occurred: Walking Height of fall: Standing Impact surface: Dinosaur Point of impact: Head Entrapped after fall: no Pain details: Quality: Aching Severity: No pain Timing: Constant Progression: Unchanged Chronicity: New Relieved by: Nothing Worsened by: Nothing Ineffective treatments: None tried Associated symptoms: no blurred vision, no difficulty breathing, no disorientation, no double vision, no focal weakness, no headaches, no hearing loss, no memory loss, no nausea, no neck pain, no numbness, no seizures, no tinnitus and no vomiting Risk factors: alcohol intake Risk factors: no aspirin use, not elderly, no obesity and no occupational exposure PAST MEDICAL HISTORY Diagnosis Date - Background diabetic retinopathy(362.01) - BPH (benign prostatic hypertrophy) - EtOH dependence (HCC) - Hyperlipidemia - Hypertension - Primary open-angle glaucoma(365.11) - Type II or unspecified type diabetes mellitus without mention of complication, not stated as uncontrolled PAST SURGICAL HISTORY Procedure Laterality Date - VASECTOMY FAMILY HISTORY Problem Relation Age of Onset - Cataract Mother - Glaucoma Mother - Ischemic Heart Disease Father 65 - other (no colon cancer) Other - other (no prostate cancer) Other Social History Tobacco Use - Smoking status: Current Every Day Smoker Packs/day: 0.50 Types: Cigarettes - Smokeless tobacco: Never Used Substance and Sexual Activity - Alcohol use: Yes - Drug use: Never - Sexual activity: Not on file ALLERGIES No Known Allergies Review of Systems Constitutional: Negative. HENT: Negative. Negative for hearing loss and tinnitus. Eyes: Negative. Negative for blurred vision and double vision. Respiratory: Negative. Cardiovascular: Negative. Gastrointestinal: Negative. Negative for nausea and vomiting. Genitourinary: Negative. Musculoskeletal: Negative. Negative for neck pain. Skin: Negative. Neurological: Negative. Negative for focal weakness, seizures, numbness and headaches. Psychiatric/Behavio ral: Negative. Negative for memory loss. Physical Exam BP 147/71 Pulse 92 Temp (Src) 98 (Oral) Resp 16 Ht 5' 9 (1.75m) Wt 148 lb (67.1kg) BMI 21.85 kg/(m2). O2 Therapy: Room Air Physical Exam Vitals signs and nursing note reviewed. Constitutional: Appearance: He is well-developed. HENT: Head: Normocephalic and atraumatic. Right Ear: External ear normal. Left Ear: External ear normal. Nose: Nose normal. Eyes: General: Lids are normal. Lids are everted, no foreign bodies appreciated. Conjunctiva/sclera: Conjunctivae normal. Pupils: Pupils are equal, round, and reactive to light. Neck: Musculoskeletal: Normal range of motion and neck supple. Trachea: Trachea normal. Cardiovascular: Rate and Rhythm: Normal rate and regular rhythm. Heart sounds: Normal heart sounds. Pulmonary: Effort: Pulmonary effort is normal. Breath sounds: Normal breath sounds. Abdominal: General: Bowel sounds are normal. Palpations: Abdomen is soft. Musculoskeletal: Normal range of motion. Skin: General: Skin is warm and dry. Neurological: Mental Status: He is alert and oriented to person, place, and time. GCS: GCS eye subscore is 4. GCS verbal subscore is 5. GCS motor subscore is 6. Cranial Nerves: No cranial nerve deficit. Sensory: No sensory deficit. Deep Tendon Reflexes: Reflexes are normal and symmetric. Diagnostic Testing ED Labs Ordered and Reviewed GLUCOSE, BLOOD (POC) - Abnormal; Notable for the following components: Result Value Ref Range Glucose, Point of Care 117 (*) 74 - 99 mg/dL All other components within normal limits LAC REPAIR Date/Time: 02/27/2020 1:49 AM Performed by: Johnny Wheeler MD Authorized by: Johnny Wheeler MD Consent: Consent obtained: Verbal Consent given by: Patient Risks discussed: Infection and pain Alternatives discussed: No treatment Anesthesia (see MAR for exact dosages): Anesthesia method: Local infiltration Local anesthetic: Lidocaine 1% w/o epi Laceration details: Location: Scalp Scalp location: Occipital Length (cm): 3 Repair type: Repair type: Simple Pre-procedure details: Preparation: Imaging obtained to evaluate for foreign bodies and patient was prepped and draped in usual sterile fashion Exploration: Hemostasis achieved with: Direct pressure Wound exploration: entire depth of wound probed and visualized Wound extent: no areolar tissue violation noted, no fascia violation noted, no foreign bodies/material noted, no muscle damage noted, no nerve damage noted, no tendon damage noted, no underlying fracture noted and no vascular damage noted Contaminated: no Treatment: Area cleansed with: Saline Amount of cleaning: Standard Irrigation solution: Sterile saline Irrigation volume: 100 Irrigation method: Syringe Visualized foreign bodies/material removed: no Skin repair: Repair method: Sreedhar Number of sreedhar: 7 Approximation: Approximation: Close Post-procedure details: Dressing: Open (no dressing) Patient tolerance of procedure: Tolerated well, no immediate complications ED Course / Clinical Impression MDM / Disposition / Plan 69-year-old gentleman has been drinking alcohol today apparently went to the store to buy some more alcohol at a mechanical fall he thinks he tripped on the curb. EMS was called police were called because he was found laying on the ground is not clear whether he was unconscious or not. That is a good possibility that he had loss of consciousness. The patient says he doesn't quite remember. He had no chest pain no palpitations no fevers no chills no double vision or blurry vision no numbness no tingling. Originally he did not want to come by EMS, however he contacted EMS contacted his and she convinced him to come in for an evaluation. His tetanus was updated in 2019. Patient doesn't have much headache. No other constitutional signs or symptoms Physical exam Afebrile vital signs are stable patient admits to drinking alcohol he is not really slurring his speech, he is clinically sober Cardiac regular rate rhythm S1-S2 rubs murmurs gallops Pulmonary exam clear to auscultation no rales rhonchi or crackles Abdomen is soft nontender nondistended bowel sounds present no hepatosplenomegaly Lymphatics no adenopathy Muscle skeletal no cyanosis clubbing edema Skin he's got a 3 cm laceration on the occiput. Neurological exam cranial nerves II through XII intact psych sensation upper and lower extremity symmetrically intact without any focal abnormalities Don't think any blood work or EKG are warranted the sounds are mechanical fall he is not clinically intoxicated, no other admits to drinking alcohol CAT scan head and neck are ordered will cleanse the wound, and close the wound. CT BRAIN WO IVCON Final Result IMPRESSION: No acute findings. Sales Agent: [facility] Transcribe Date/Time: Feb 27 2020 1:28A Dictated by : VILLA ANAND MD This examination was interpreted and the report reviewed and electronically signed by: VILLA ANAND MD on Feb 27 2020 1:31AM EST CT CERVICAL SPINE WO IVCON Final Result IMPRESSION: No acute fractures. Sales Agent: [facility] Transcribe Date/Time: Feb 27 2020 1:34A Dictated by : VILLA ANAND MD This examination was interpreted and the report reviewed and electronically signed by: VILLA ANAND MD on Feb 27 2020 1:35AM EST CAT scans are negative the patient's wound was cleaned and prepped in the usual fashion numbed up with 1% lidocaine 7 sreedhar were applied. See procedure note Diagnostic impression #1 close head injury #2 scalp laceration SIGNATURE: MD Johnny Olguin MD 02/27/20 0150 [facility] PROGRESSon 12-19-2019 PROGRESS HNO ID: [id number] Author: Gucci Sanchez Service: ? Author Type: Physician Type: Progress Notes Filed: 12/19/2019 4:37 PM Note Text: Primary open angle glaucoma (poag) of both eyes, mild stage (primary encounter diagnosis) Misses some Stressed compliance Get vft next time too Gucci Sanchez MD Normal [facility] Add On Lab Teston 07-10-2019 Sodium [Moles/Vol] Rejected [place], [place] Comment on above: No recent specimen f or ADDON Test Performed by [facility], [address] [place] [address] [place], [place] Add on test from HISon 07-10 Add on test from HIS Rejected Normal [facility] Comment on above: Result Comment: No r ecent specimen for ADDON Performed By: #### H EMDF, CMP3, LIPA4, MG3, ETOH4 #### [address] [address] Glucose,Bedsideon 07-10-2019 Glucose [Mass/Vol] 164 mg/dL High 70-100 [facility] Comment on above: Result Comment: Test performed by glucose meter. Results may be 10%-15% lower than serum/plasma values. (CLIA ID [id number]) Performed By: #### H EMDF, CMP3, LIPA4, MG3, ETOH4 #### [address] [address] Glucose [Mass/Vol] 167 mg/dL High 70-100 [facility] Comment on above: Result Comment: Test performed by glucose meter. Results may be 10%-15% lower than serum/plasma values. (CLIA ID [id number]) Performed By: #### H EMDF, CMP3, LIPA4, MG3, ETOH4 #### [address] [address] POCT Glucoseon 07-10-2019 Glucose [Mass/Vol] 164 mg/dL High 70 - 100 mg/dL [place], [place] Comment on above: Test performed by gl ucose meter. Results may be 10%-15% lower than serum/plasma values. (CLIA ID [id number]) Interpretation and review of laboratory results Abnormal [place], [place] Test Performed by [facility], [facility] [place] [address] [place] TSH without Reflexon 019 TSH Qn 1.691 u[IU]/mL 0.465 - 4.68 u[IU]/mL [facility], [place] Test Performed by [facility], [address] [facility] [place] [address] [place], [place] Thyroid Stim. Hormoneon Thyroid Stim. Hormone 1.691 u[IU]/mL Normal 0.465-4.68 0 [facility] Comment on above: Performed By: #### H EMDF, CMP3, LIPA4, MG3, ETOH4 #### [address] [address] Glucose,Bedsideon 07-09-2019 Glucose [Mass/Vol] 229 mg/dL High 70-100 [facility] Comment on above: Result Comment: Test performed by glucose meter. Results may be 10%-15% lower than serum/plasma values. (CLIA ID [id number]) Performed By: #### H EMDF, CMP3, LIPA4, MG3, ETOH4 #### [address] [address] Glucose [Mass/Vol] 69 mg/dL Low 70-100 [facility] Comment on above: Result Comment: Test performed by glucose meter. Results may be 10%-15% lower than serum/plasma values. (CLIA ID [id number]) Performed By: #### H EMDF, CMP3, LIPA4, MG3, ETOH4 #### [facility] [address] [address] Glucose,Bedsideon 07-08-2019 Glucose [Mass/Vol] 125 mg/dL High 70-100 [facility] Comment on above: Result Comment: Test performed by glucose meter. Results may be 10%-15% lower than serum/plasma values. (CLIA ID [id number]) Performed By: #### H EMDF, CMP3, LIPA4, MG3, ETOH4 #### [address] [address] Glucose [Mass/Vol] 142 mg/dL High 70-100 [facility] Comment on above: Result Comment: Test performed by glucose meter. Results may be 10%-15% lower than serum/plasma values. (CLIA ID [id number]) Performed By: #### H EMDF, CMP3, LIPA4, MG3, ETOH4 #### [address] [address] Glucose,Bedsideon 07-07-2019 Glucose [Mass/Vol] 150 mg/dL High 70-100 [facility] Comment on above: Result Comment: Test performed by glucose meter. Results may be 10%-15% lower than serum/plasma values. (CLIA ID [id number]) Performed By: #### H EMDF, CMP3, LIPA4, MG3, ETOH4 #### [address] [address] Glucose [Mass/Vol] 175 mg/dL High 70-100 [facility] Comment on above: Result Comment: Test performed by glucose meter. Results may be 10%-15% lower than serum/plasma values. (CLIA ID [id number]) Performed By: #### H EMDF, CMP3, LIPA4, MG3, ETOH4 #### [address] [address] Glucose,Bedsideon 07-06-2019 Glucose [Mass/Vol] 166 mg/dL High 70-100 [facility] Comment on above: Result Comment: Test performed by glucose meter. Results may be 10%-15% lower than serum/plasma values. (CLIA ID [id number]) Performed By: #### B GLU #### [address] [place] [address] Hemoglobin A1Con 07-06-2019 HbA1c (Bld) [Mass fraction] 148 mg/dL Normal [facility] Comment on above: Performed By: #### H EMDF, CMP3, LIPA4, MG3, ETOH4 #### [address] [address] HbA1c (Bld) [Mass fraction] 6.8 % High 4.0-5.7 [facility] Comment on above: Result Comment: --Hg bA1C levels may not be accurate in patients who have renal disease, received recent blood transfusions, are anemic, or who have dyshemoglobinemia. Performed By: #### H EMDF, CMP3, LIPA4, MG3, ETOH4 #### [address] [address] Hemoglobin A1con 07-06-2019 eAG 148 mg/dL [place], [place] HbA1c (Bld) [Mass fraction] 6.8 % High 4 - 5.7 % [place] Comment on above: --HgbA1C levels may not be accurate in patients who have renal disease, received recent blood transfusions, are anemic, or who have dyshemoglobinemia. Interpretation and review of laboratory results Abnormal [place], [place] Test Performed by [address] [address] [place] Lipid Panelon 07-06-2019 Cholesterol [Mass/Vol] 103 mg/dL Normal < 200 [facility] Comment on above: Performed By: #### H EMDF, CMP3, LIPA4, MG3, ETOH4 #### [address] [address] Cholesterol in HDL [Mass/Vol] 45 mg/dL Normal 40-60 [facility] Comment on above: Performed By: #### H EMDF, CMP3, LIPA4, MG3, ETOH4 #### [address] [address] Cholesterol.total/Shena sterol in HDL [Mass ratio] 2 Normal [facility] Comment on above: Result Comment: Ref Range: < 3 Low Risk for CHD 3-6 Mod Risk for CHD > 6 High Risk for CHD Performed By: #### H EMDF, CMP3, LIPA4, MG3, ETOH4 #### [address] [address] Protein [Mass/Vol] 42 mg/dL Normal <100 [facility] Comment on above: Performed By: #### H EMDF, CMP3, LIPA4, MG3, ETOH4 #### [address] [address] Triglyceride [Mass/Vol] 82 mg/dL Normal <150 [facility] Comment on above: Performed By: #### H EMDF, CMP3, LIPA4, MG3, ETOH4 #### [facility] [address] [place] [address] Lipid panel - fastingon Cholesterol [Mass/Vol] 103 mg/dL <200 [place], [place] Cholesterol in HDL [Mass/Vol] 45 mg/dL 40 - 60 mg/dL [place] Cholesterol in LDL [Mass/Vol] 42 mg/dL <100 [place] Cholesterol.total/Shena sterol in HDL [Mass ratio] 2 {ratio} [place] Comment on above: Ref Range: < 3 Low Risk for CHD 3-6 Mod Risk for CHD > 6 High Risk for CHD Triglyceride [Mass/Vol] 82 mg/dL <150 M [place], [place] Test Performed by [facility], [address] [place] [address] [place] Glucose,Bedsideon 07-05-2019 Glucose [Mass/Vol] 217 mg/dL High 70-100 [facility] Comment on above: Result Comment: Test performed by glucose meter. Results may be 10%-15% lower than serum/plasma values. (CLIA ID [id number]) Performed By: #### B GLU #### [facility] [address] [place] [address] PROGRESSon 06-06-2019 PROGRESS HNO ID: [id number] Author: Gucci Sanchez Service: ? Author Type: Physician Type: Progress Notes Filed: 06/06/2019 4:24 PM Note Text: Primary open angle glaucoma (poag) of both eyes, mild stage (primary encounter diagnosis) Posterior subcapsular polar age-related cataract of both eyes Stressed compliance No signs of diabetic retinopathy in either eye. josue prn Gucci Sanchez MD [facility] CT Head or Brain w/o Contras ton 03-15-2019 CT Head or Brain w/o Contrast Patient Name: ETHEL NORRIS CT Exam Date/Time 03/15/2019 21:09:[address] Head or Brain w/o Contrast Ordering Physician DO TREJO JEFFREY L Accession Number [id number] CPT4 Codes 27234 () Reason For Exam HEADACHE, POST TRAUMA Report CT HEAD WITHOUT CONTRAST: CLINICAL INDICATION: Fall. Laceration at the vertex of head. COMPARISON: none TECHNIQUE: [address] images through the brain. Sagittal and coronal reformatted images provided. FINDINGS: Ventricles and extra-axial spaces: Mild prominence of cerebral ventricles, cisterns and sulci for age, compatible with mild cerebral atrophy. No extra-axial fluid collection. Cerebral and cerebellar parenchyma: No abnormal areas of decreased or increased parenchymal density. No mass, mass effect or acute cortical infarct. Hemorrhage: None. Brainstem: Normal. Visualized paranasal sinuses: Bilateral ethmoid and right maxillary sinus mucosal thickening. Mastoid air cells: Normal. Visualized orbits: Normal. Calvarium and skull base: Normal. Other: None. IMPRESSION: No acute intracranial process. Cerebral atrophy and chronic small vessel ischemic disease. Report Dictated on Final Dictated: 03/15/2019 9:11 pm Dictating Physician: NICK FITZPATRICK DO, I Signed Date and Time: 03/15/2019 9:13 pm Signed by: NICK FITZPATRICK DO, I Transcribed Date and Time: 03/15/2019 9:11 Normal [facility] CT Spine Cervical [facility] Spine Cervical w/o Contrast Patient Name: ETHEL NORRIS CT Exam Date/Time 03/15/2019 21:10:[address] Spine Cervical w/o Contrast Ordering Physician DO TREJO JEFFREY L Accession Number [id number] CPT4 Codes 21231 () Reason For Exam NECK PAIN FOLLOWING TRAUMA Report CT CERVICAL SPINE: CLINICAL INDICATION: Fall today. Lower neck pain. TECHNIQUE: 3 mm axial images of the cervical spine were obtained. Coronal and sagittal reconstruction images were provided for review. COMPARISON: None. FINDINGS: There is near-anatomic alignment of cervical spine. 3 mm of anterolisthesis of C4 on C5 is seen. Multilevel disc space narrowing with uncovertebral and endplate osteophytes from C4-C5 to C6-C7 as well as subchondral sclerosis at C6-C7 level is noted. Vertebral body height and disc spaces are maintained. Bilateral cervical facet osteoarthritis is noted. The surrounding soft tissues of the neck are grossly unremarkable on this noncontrast study. Evaluation for a disc herniation is limited with CT imaging. Heavy right sided carotid bifurcation atherosclerotic calcification IMPRESSION: 1. No fracture or subluxation of the cervical vertebrae. 2. Moderate cervical degenerative spondylosis and bilateral facet osteoarthritis. 3. Right carotid bifurcation atherosclerosis. Correlate with duplex ultrasound. Report Dictated on Final Dictated: 03/15/2019 9:18 pm Dictating Physician: NICK FITZPATRICK DO, I Signed Date and Time: 03/15/2019 9:20 pm Signed by: NICK FITZPATRICK DO, I Transcribed Date and Time: 03/15/2019 9:18 Normal [facility] Comp Metabolic Panelon 03-15 ALP [Catalytic activity/Vol] 30 U/L Low 38-126 [facility] Comment on above: Performed By: #### H EMDF, CMP3, LIPA4, MG3, ETOH4 #### [address] [address] ALT [Catalytic activity/Vol] 36 U/L Normal 13-69 [facility] Comment on above: Performed By: #### H EMDF, CMP3, LIPA4, MG3, ETOH4 #### [address] [address] AST [Catalytic activity/Vol] 27 U/L Normal 15-46 [facility] Comment on above: Performed By: #### H EMDF, CMP3, LIPA4, MG3, ETOH4 #### [address] [address] Calcium [Mass/Vol] 9.3 mg/dL Normal 8.4-10.4 [facility] Comment on above: Performed By: #### H EMDF, CMP3, LIPA4, MG3, ETOH4 #### [address] [address] Glucose [Mass/Vol] 107 mg/dL High 70-100 [facility] Comment on above: Performed By: #### H EMDF, CMP3, LIPA4, MG3, ETOH4 #### [address] [address] Protein [Mass/Vol] 7.2 g/dL Normal 6.3-8.2 [facility] Comment on above: Performed By: #### H EMDF, CMP3, LIPA4, MG3, ETOH4 #### [address] [address] Urea nitrogen [Mass/Vol] 5 mg/dL Low 7-20 [facility] Comment on above: Performed By: #### H EMDF, CMP3, LIPA4, MG3, ETOH4 #### [address] [place] [address] Anion gap [Moles/Vol] 17 Normal [facility] Comment on above: Performed By: #### H EMDF, CMP3, LIPA4, MG3, ETOH4 #### [address] [address] Bilirubin [Mass/Vol] 0.3 mg/dL Normal 0.2-1.3 [facility] Comment on above: Performed By: #### H EMDF, CMP3, LIPA4, MG3, ETOH4 #### [address] [address] CO2 [Moles/Vol] 23 mmol/L Normal 22-30 [facility] Comment on above: Performed By: #### H EMDF, CMP3, LIPA4, MG3, ETOH4 #### [address] [address] Creatinine [Mass/Vol] 0.67 mg/dL Normal 0.52-1.25 [facility] Comment on above: Performed By: #### H EMDF, CMP3, LIPA4, MG3, ETOH4 #### [address] [place] [address] GFR/1.73 sq M predicted among blacks MDRD (S/P/Bld) [Vol rate/Area] mL/min/{1.73_m2} Normal >60 [facility] Comment on above: Performed By: #### H EMDF, CMP3, LIPA4, MG3, ETOH4 #### [address] [place] [address] GFR/1.73 sq M predicted among non-blacks MDRD (S/P/Bld) [Vol rate/Area] mL/min/{1.73_m2} Normal >60 [facility] Comment on above: Result Comment: Sour ce- MDRD equation with creatinine calibration to IDMS(NKDEP) eGFR not recommended for drug dose adjustment Performed By: #### H EMDF, CMP3, LIPA4, MG3, ETOH4 #### [address] [address] Albumin [Mass/Vol] 4.3 g/dL Normal 3.5-5.0 [facility] Comment on above: Performed By: #### H EMDF, CMP3, LIPA4, MG3, ETOH4 #### [address] [address] Chloride [Moles/Vol] 94 mmol/L Low 98-107 [facility] Comment on above: Performed By: #### H EMDF, CMP3, LIPA4, MG3, ETOH4 #### [address] [address] Potassium [Moles/Vol] 4.1 mmol/L Normal 3.5-5.1 [facility] Comment on above: Performed By: #### H EMDF, CMP3, LIPA4, MG3, ETOH4 #### [address] [address] Sodium [Moles/Vol] 134 mmol/L Low 135-145 [facility] Comment on above: Performed By: #### H EMDF, CMP3, LIPA4, MG3, ETOH4 #### [address] [address] Ethanol Serum/Plasmaon 03-15 Ethanol-Serum/Plasma 0.180 g/dL High 0.000-0.010 [facility] Comment on above: Result Comment: NOTE : This result is for medical treatment only. Analysis performed using non-forensic procedures. Performed By: #### H EMDF, CMP3, LIPA4, MG3, ETOH4 #### [address] [address] Glucose,Bedsideon 03-15-2019 Glucose [Mass/Vol] 123 mg/dL High 70-100 [facility] Comment on above: Result Comment: Test performed by glucose meter. Results may be 10%-15% lower than serum/plasma values. (CLIA ID [id number]) Performed By: #### B GLU #### [address] [address] Hemogram w/ Autodiffon 03-15 Abs Baso Cnt 0.0 10*3/uL Normal 0.0-0.2 [facility] Comment on above: Performed By: #### H EMDF, CMP3, LIPA4, MG3, ETOH4 #### [address] [address] Abs Neutrophile Cnt 4.4 10*3/uL Normal 1.8-7.0 [facility] Comment on above: Performed By: #### H EMDF, CMP3, LIPA4, MG3, ETOH4 #### [address] [address] Basophils/100 WBC (Bld) 0.6 % Normal 0.0-2.0 [facility] Comment on above: Performed By: #### H EMDF, CMP3, LIPA4, MG3, ETOH4 #### [address] [address] Eosinophils (Bld) [#/Vol] 0.1 10*3/uL Normal 0.0-0.5 [facility] Comment on above: Performed By: #### H EMDF, CMP3, LIPA4, MG3, ETOH4 #### [address] [address] Eosinophils/100 WBC (Bld) 0.9 % Low 1.0-6.0 [facility] Comment on above: Performed By: #### H EMDF, CMP3, LIPA4, MG3, ETOH4 #### [address] [address] Erythrocyte distribution width (RBC) [Ratio] 11.8 % Normal 11.5-14.5 [facility] Comment on above: Performed By: #### H EMDF, CMP3, LIPA4, MG3, ETOH4 #### [address] [address] Granulocytes/100 WBC (Bld) 64.1 % Normal 40.0-80.0 [facility] Comment on above: Performed By: #### H EMDF, CMP3, LIPA4, MG3, ETOH4 #### [address] [address] Hematocrit (Bld) [Volume fraction] 40.6 % Normal 40.0-52.0 [facility] Comment on above: Performed By: #### H EMDF, CMP3, LIPA4, MG3, ETOH4 #### [address] [address] Hemoglobin (Bld) [Mass/Vol] 13.8 g/dL Normal 13.0-18.0 [facility] Comment on above: Performed By: #### H EMDF, CMP3, LIPA4, MG3, ETOH4 #### [address] [address] Lymphocytes (Bld) [#/Vol] 1.7 10*3/uL Normal 1.0-4.3 [facility] Comment on above: Performed By: #### H EMDF, CMP3, LIPA4, MG3, ETOH4 #### [address] [address] Lymphocytes/100 WBC (Bld) 25.7 % Normal 20.0-40.0 [facility] Comment on above: Performed By: #### H EMDF, CMP3, LIPA4, MG3, ETOH4 #### [address] [address] MCH (RBC) [Entitic mass] 32.5 pg Normal 26.0-34.0 [facility] Comment on above: Performed By: #### H EMDF, CMP3, LIPA4, MG3, ETOH4 #### [address] [address] MCHC (RBC) [Mass/Vol] 34.1 % Normal 32.0-36.0 [facility] Comment on above: Performed By: #### H EMDF, CMP3, LIPA4, MG3, ETOH4 #### [address] [address] MCV (RBC) [Entitic vol] 95.4 fL Normal 80.0-98.0 [facility] Comment on above: Performed By: #### H EMDF, CMP3, LIPA4, MG3, ETOH4 #### [address] [address] Monocytes (Bld) [#/Vol] 0.6 10*3/uL Normal 0.0-0.8 [facility] Comment on above: Performed By: #### H EMDF, CMP3, LIPA4, MG3, ETOH4 #### [address] [address] Monocytes/100 WBC (Bld) 8.7 % Normal 2.0-10.0 [facility] Comment on above: Performed By: #### H EMDF, CMP3, LIPA4, MG3, ETOH4 #### [address] [address] Platelet mean volume (Bld) [Entitic vol] 7.4 fL Normal 7.4-10.4 [facility] Comment on above: Performed By: #### H EMDF, CMP3, LIPA4, MG3, ETOH4 #### [address] [address] Platelets (Bld) [#/Vol] 195 10*3/uL Normal 140-440 [facility] Comment on above: Performed By: #### H EMDF, CMP3, LIPA4, MG3, ETOH4 #### [address] [address] RBC (Bld) [#/Vol] 4.26 10*6/uL Low 4.40-5.90 [facility] Comment on above: Performed By: #### H EMDF, CMP3, LIPA4, MG3, ETOH4 #### [address] [address] WBC (Bld) [#/Vol] 6.8 10*3/uL Normal 3.6-10.7 [facility] Comment on above: Performed By: #### H EMDF, CMP3, LIPA4, MG3, ETOH4 #### [address] [address] Lipaseon 05-15-2019 Lipase [Catalytic activity/Vol] 112 U/L Normal 23-300 [facility] Comment on above: Performed By: #### H EMDF, CMP3, LIPA4, MG3, ETOH4 #### [facility] [address] [place] [address] Magnesiumon 03-15-2019 Magnesium [Mass/Vol] 1.5 mg/dL Low 1.6-2.3 [facility] Comment on above: Performed By: #### H EMDF, CMP3, LIPA4, MG3, ETOH4 #### [facility] [address] [place] [address] Clinical Summary: HMSPatient IDon 12-07-2018 WOP [facility] Work Phone: Clinical Summary: Scanned RO S Summaryon 12-07-2018 endocrine ROS Complains [facility] Work Phone: endocrine system, review of, comments Diabetes [facility] Work Phone: genitourinary review of systems, E&M Denies [facility] Work Phone: Lymphocytes #/vol (Bld) [facility] Work [facility]: Review of Systems Neurologic comment Numbness,Tingling [facility] Work Phone: ROS cardiovascular E&M Denies Cr [facility]stal [facility] Work Phone: ROS ENT E&M Denies Crystal [facility] Work Phone: ROS gastrointestinal E&M Denies [facility] Work Phone: ROS general E&M Denies [facility] Work Phone: ROS musculoskeletal E&M Denies [facility] Work Phone: ROS neurological E&M Complains Marisol priya [facility] Work Phone: ROS psychiatric E&M Denies [facility] Work Phone: ROS pulmonary E&M Denies [facility] Work Phone: ROS skin E&M Denies [facility] Work Phone: Office Visit: New - 1st visi t with practice, Rm: 4on 12-07-2018 NEGATED: Highlighted rowEMG (electromyograph) history of the Right upper Extremity on 1950 at [facility] Work Phone: NEGATED: Highlighted rowProtein mass conc Yes Crystal Cli [facility] Work Phone: NEGATED: Highlighted rowProtein mass conc Done Crystal i [facility] Work Phone: Clinical Lists Update: Prelo ad Extendedon 12-06-2018 Tobacco smoking status NHIS current everyday smoker [facility] Work Phone: Vital Signs Date Time Vital Sign Value Performing Clinician Facility 01-12-2024 16:02-0400 Body height 167.64 cm [facility] 01-12-2024 16:02-0400 Body mass index (BMI) [Ratio] 28 kg/m2 [facility] 01-12-2024 16:02-0400 Body temperature 97.9 [degF] [facility] 01-12-2024 16:02-0400 Body weight 78.92 kg [facility] 01-12-2024 16:02-0400 Diastolic blood pressure 60 mm[Hg] [facility] 01-12-2024 16:02-0400 Heart rate 69 /min [facility] 01-12-2024 16:02-0400 Respiratory rate 18 /min [facility] 01-12-2024 16:02-0400 SaO2% (BldA) [Mass fraction] 98 % [facility] 01-12-2024 16:02-0400 Systolic blood pressure 115 mm[Hg] [facility] 01-01-2023 14:28-0500 Body height 167.64 cm [facility] 01-01-2023 14:28-0500 Body mass index (BMI) [Ratio] 28.2 kg/m2 [facility] 01-01-2023 14:28-0500 Body temperature 97.8 [degF] [facility] 01-01-2023 14:28-0500 Body weight 79.37 kg [facility] 01-01-2023 14:28-0500 Diastolic blood pressure 70 mm[Hg] [facility] 01-01-2023 14:28-0500 Heart rate 78 /min [facility] 01-01-2023 14:28-0500 Respiratory rate 18 /min [facility] 01-01-2023 14:28-0500 SaO2% (BldA) [Mass fraction] 99 % [facility] 01-01-2023 14:28-0500 Systolic blood pressure 140 mm[Hg] [facility] 07-10-2019 05:48-0400 Body Temperature 97.3 [degF] [facility] [place] 07-10-2019 05:48-0400 BP Diastolic 80 mm[Hg] [place], [place] 07-10-2019 05:48-0400 BP Systolic 136 mm[Hg] [facility] [place] 07-10-2019 05:48-0400 Pulse (Heart Rate) 74 /min [facility] [place] 07-10-2019 05:48-0400 Pulse Oximetry 97 % [facility] [place] 07-10-2019 05:48-0400 Respiratory Rate 16 /min [facility] [place] 07-05-2019 13:14-0400 BMI (Body Mass Index) 24.21 kg/m2 [facility] [place] 07-05-2019 13:14-0400 Body weight 68.04 kg [facility] [place] 07-05-2019 13:14-0400 Height 167.6 cm María Murphy [facility] [place] , [place] NEGATED: Highlighted [id number] 15:07-0500 BMI (Body Mass Index) 23.11 kg/m2 Tri Hill LPN [facility] Work Phone: NEGATED: Highlighted [id number] 15:07-0500 BP Diastolic 67 mm[Hg] Tri Hill LPN [facility] Work Phone: NEGATED: Highlighted [id number] 15:07-0500 BP Systolic 110 mm[Hg] Tri Hill LPN [facility] Work Phone: NEGATED: Highlighted [id number] 15:07-0500 Height 170.18 cm Tri Hill LPN [facility] Work Phone: NEGATED: Highlighted [id number] 15:07-0500 Height 170 cm Tri Hill LPN [facility] Work Phone: NEGATED: Highlighted [id number] 15:07-0500 Pulse (Heart Rate) 79 /min Tri Hill LPN [facility] Work Phone: NEGATED: Highlighted [id number] 15:07-0500 Weight 66.68 kg Tri Hill LPN [facility] Work Phone: NEGATED: Highlighted [id number] 15:07-0500 Weight 67 kg Tri Hill LPN [facility] Work Phone: Encounters Encounter Date Encounter Type Care Provider Facility Start: 07-14-2024 End: 07-14-2024 ambulatory María Murphy CODIFIER Facility:[facility] Start: 05-22-2024 End: 05-22-2024 ambulatory María Murphy CODIFIER Facility:[facility] Start: 04-14-2024 Telephone encounter Lizzy [facility] [employer] Comment on above: Appointment (To jade hernandez pcp, phone was picked up, then disconnected) Start: 03-31-2024 Telephone encounter Lizzy Letitia [facility] [employer] Operator Comment on above: Appointment Start: 03-07-2024 End: 03-07-2024 ambulatory María Murphy CODIFIER Facility:[facility] Start: 01-12-2024 End: 01-12-2024 ambulatory [facility] Work Phone: Start: 01-12-2024 End: 01-12-2024 Patient encounter procedure [facility] Work Phone: Start: 01-12-2024 End: 01-12-2024 ambulatory María Murphy CODIFIER Facility:[facility] Start: 01-01-2023 End: 01-01-2023 ambulatory [facility] Work Phone: Start: 01-01-2023 End: 01-01-2023 Patient encounter procedure [facility] Start: 01-01-2023 Patient encounter status [facility] Start: 12-07-2018 End: 12-07-2018 Patient encounter procedure Osman Salter MD Work Phone: [facility] Work Phone: Procedures Date Procedure Procedure Detail Performing Clinician Start: 07-10-2019 Gluc bld gluc mntr d ev cleared fda spec home use Nick Anaplan Work Phone: Start: 07-10-2019 Assay of thyroid stimulating hormone tsh Nick Anaplan Work Phone: Start: 07-10-2019 Gluc bld gluc mntr d ev cleared fda spec home use Nick Anaplan Work Phone: Start: 07-10-2019 ADD ON LAB TEST Nick camarillo Work Phone: Start: 07-09-2019 Gluc bld gluc mntr d ev cleared fda spec home use [employer] Work Phone: Start: 07-09-2019 Gluc bld gluc mntr d ev cleared fda spec home use [employer] Work Phone: Start: 07-08-2019 Gluc bld gluc mntr d ev cleared fda spec home use Nick Anaplan Work Phone: Start: 07-08-2019 Gluc bld gluc mntr d ev cleared fda spec home use Nick [employer] Work Phone: Start: 07-07-2019 Gluc bld gluc mntr d ev cleared fda spec home use Nick Anaplan Work Phone: Start: 07-07-2019 Gluc bld gluc mntr d ev cleared fda spec home use Nick [employer] Work Phone: Start: 07-06-2019 Gluc bld gluc mntr d ev cleared fda spec home use Nick Anaplan Work Phone: Start: 07-06-2019 Hemoglobin glycosylated a1c Nick [employer] Work Phone: Start: 07-06-2019 Lipid panel Nick [employer] Work Phone: Start: 07-06-2019 Lipid 1996 panel - S wilfredo or Plasma Lizzy Whitehead [facility] Start: 07-05-2019 Gluc bld gluc mntr d ev cleared fda spec home use Nick [employer] Work Phone: Start: 12-07-2018 End: 12-07-2018 Blood pressure within normal parameters - no follow-up required Osman Salter MD Work Phone: Start: 12-07-2018 End: 12-07-2018 BMI documented within normal parameters - no follow-up plan is required Osman Salter MD Work Phone: Start: 12-07-2018 End: 12-07-2018 Documentation of current medications Osman Salter MD Work Phone: Start: 12-07-2018 End: 12-07-2018 Pain assessment documented as positive - follow-up documented Osman Salter MD Work Phone: Start: 12-07-2018 End: 12-07-2018 Pt tobacco screen rcvd tlk Osman velazquez MD Work Phone: Start: 12-07-2018 End: 12-07-2018 Radex wrist complete minimum 3 views Osman Salter MD Work Phone: Start: 11-22-2013 Colonoscopy Lizzy howell [employer] Plan of Treatment Date Care Activity Detail Author Start: 07-04-2029 Urine microalbumin profile DTaP,Tdap,Td Vaccine (3 - Td or Tdap) [facility] Start: 07-06-2024 Lipid panel Lipid Screening [facility] Start: 07-02-2024 Influenza vaccination Influenza Vaccine (Season Ended) [facility] Start: 11-01-2023 Advance Directive Discussion Advance Directive Discussion [facility] Start: 11-01-2023 Behavioral Health Screening Behavioral Health Screening [facility] Start: 07-02-2023 Covid-19 Vaccine ( season) Covid-19 Vaccine ( season) [facility] Start: 07-06-2022 Diabetes Screening Diabetes Screening [facility] Start: 03-15-2020 Creatinine monitoring Creatinine monitoring [place], [place] Start: 03-15-2020 Potassium monitoring Potassium monitoring [place], [place] Start: 07-02-2019 Influenza vaccination Flu vaccine (#1) [place], [place] Start: 12-07-2018 End: 12-07-2018 Appointment Appointment [facility] Work Phone: Start: 2017 Pneumococcal 65+ years Vaccine (1 of 2 - PCV13) Pneumococcal 65+ years Vaccine (1 of 2 - PCV13) [place], [place] Start: 2017 Pneumococcal Vaccine: 65+ (2 of 2 - PCV) Pneumococcal Vaccine: 65+ (2 of 2 - PCV) [facility] Start: 11-22-2014 Screening for malignant neoplasm of colon [facility] Start: 2012 RSV Vaccine (1 - 1-dose 60+ series) RSV Vaccine (1 - 1-dose 60+ series) [facility] Start: 2002 Shingrix Vaccine (1 of 2) Shingrix Vaccine (1 of 2) [facility] Start: 1997 Screening for malignant neoplasm of colon [facility] Start: 1970 Hepatitis C screening Hepatitis C Screening [facility] Start: 1950 Abdominal aortic aneurysm screening Abdominal Aortic Aneurysm Screening [facility] Patient Education \[id number]\CPS_ PtEducati on\[id number] [facility] Work Phone: Immunizations Immunization Date Immunization Notes Care Provider Berenice goldsmith 02-04-2021 COVID-19 original vaccine, age 12+ yr, monovalent (PFIZER-BIONTECH - PURPLE TOP) Lizzy Whitehead [facility] 01-14-2021 COVID-19 original vaccine, age 12+ yr, monovalent (PFIZER-BIONTECH - PURPLE TOP) Lizzy Whitehead [facility] 07-04-2019 tetanus toxoid, redu montserrat diphtheria toxoid, and acellular pertussis vaccine, adsorbed Lizzy [facility] 03-15-2019 tetanus toxoid, redu montserrat diphtheria toxoid, and acellular pertussis vaccine, adsorbed [place], [place] 11-22-2008 pneumococcal polysaccharide vaccine, 23 valent [facility] No information available. Tri Hill LPN [facility] Work Phone: Payers Date Payer Category Payer Self-pay [id number] 2024 Unknown [id number] 2018 Medicare [employer] [place] [id number] 2018-Present [phone] [address] [place] [address] [facility] [place] [id number] [facility] xxxxxxxxxxx 2018-Present [phone] [address] [place] [address] xxxxxxxxxxx [id number] Unknown [id number] Unknown [id number] Unknown [id number] Unknown [id number] Social History Date Type Detail Facility Start: 01-01-2023 End: 01-11-2024 Assertion Unknown if ever smoked [facility] Work Phone: Start: 02-05-2014 End: 03-15-2019 Tobacco smoking status NHIS Current every day smoker [facility] Start: 03-15-2019 End: 10-06-2020 Alcohol intake Never [facility] Start: 1950 [facility] Start: 1950 Sex Assigned At Male W [facility] History of tobacco use Cigarette Smoker [facility] Start: 02-05-2014 End: 10-06-2020 Cigarettes smoked current (pack per day) - Reported 0.5 [facility] Start: 02-05-2014 Tobacco use and exposure Smokeless tobacco non-user [facility] Start: 02-27-2020 Alcohol intake Current drinke r of alcohol (finding) [facility] PHQ2 Score 6 [facility] NEGATED: Highlighted rowStart: 12-07-2018 End: 12-07-2018 Tobacco use and exposure SMOK ADVICE Yes [facility] Work Phone: Telephone encounter Note 04-14-2024 Telephone Encounter - Lizzy Whitehead - 04/14/2024 12:45 PM EDT Note Date & Type Note Facility 04-14-2024 Telephone encount er Note ANNUAL MEDICARE WELLNESS VISIT OUTREACH Outreach attempt to contact patient and schedule Medicare wellness. Patient identified by name and date of : NO Outreach outcome: Unable to make contact: 3rd attempt Unable to leave a message This is Lizzy Whitehead calling from [facility]. No associated primary care provider noticed that you're due for your Medicare wellness visit. They asked me to call and assist you with scheduling an appointment with your primary care office. Can I set that up for you? No Follow up needed:No If the patient asks what a Medicare Wellness visit is: The Medicare wellness visit isn't an exam. It is a great way to get up-to-date with your provider's care team. The purpose of the Annual Wellness Visit under Medicare is to paint a picture of your current state of health and to create a baseline for future care. Any additional test or labs that may be required as a result of the findings of your annual wellness visit would be billed separately by your doctor and would fall under a different benefit than your annual wellness visit. Medicare also covers a number of other preventative services at no cost such as preventative cancer screenings, bone density measurement, and flu shots. Your visit may include: A review of your medical and family history. A review of your current providers and prescriptions. Height, weight, blood pressure, and other routine measurements. Personalized health advice. A list of risk factors and treatment options for you. A screening schedule (like a checklist) for appropriate preventive services. Lizzy Whitehead [facility] Note 04-14-2024 Telephone Encounter - Lizzy Whitehead - 04/14/2024 12:45 PM EDT Note Date & Type Note Facility 04-14-2024 Miscellaneous Notes Formattin g of this note is different from the original. ANNUAL MEDICARE WELLNESS VISIT OUTREACH Outreach attempt to contact patient and schedule Medicare wellness. Patient identified by name and date of : NO Outreach outcome: Unable to make contact: 3rd attempt Unable to leave a message This is Lizzy Whitehead calling from [facility]. No associated primary care provider noticed that you're due for your Medicare wellness visit. They asked me to call and assist you with scheduling an appointment with your primary care office. Can I set that up for you? No Follow up needed:No If the patient asks what a Medicare Wellness visit is: The Medicare wellness visit isn't an exam. It is a great way to get up-to-date with your provider's care team. The purpose of the Annual Wellness Visit under Medicare is to paint a picture of your current state of health and to create a baseline for future care. Any additional test or labs that may be required as a result of the findings of your annual wellness visit would be billed separately by your doctor and would fall under a different benefit than your annual wellness visit. Medicare also covers a number of other preventative services at no cost such as preventative cancer screenings, bone density measurement, and flu shots. Your visit may include: A review of your medical and family history. A review of your current providers and prescriptions. Height, weight, blood pressure, and other routine measurements. Personalized health advice. A list of risk factors and treatment options for you. A screening schedule (like a checklist) for appropriate preventive services. Lizzy Whitehead documented in this encounter [facility] Telephone encounter Note 03-31-2024 Telephone Encounter - Lizzy Whitehead - 03/31/2024 8:07 AM EDT Note Date & Type Note Facility 03-31-2024 Telephone encount er Note ANNUAL MEDICARE WELLNESS VISIT OUTREACH Outreach attempt to contact patient and schedule Medicare wellness. Patient identified by name and date of : NO Outreach outcome: Unable to make contact: 2nd attempt Left message This is Lizzy Whitehead calling from [facility]. Dr. Jim Ruelas MD noticed that you're due for your Medicare wellness visit. They asked me to call and assist you with scheduling an appointment with your primary care office. Can I set that up for you? No Follow up needed:No If the patient asks what a Medicare Wellness visit is: The Medicare wellness visit isn't an exam. It is a great way to get up-to-date with your provider's care team. The purpose of the Annual Wellness Visit under Medicare is to paint a picture of your current state of health and to create a baseline for future care. Any additional test or labs that may be required as a result of the findings of your annual wellness visit would be billed separately by your doctor and would fall under a different benefit than your annual wellness visit. Medicare also covers a number of other preventative services at no cost such as preventative cancer screenings, bone density measurement, and flu shots. Your visit may include: A review of your medical and family history. A review of your current providers and prescriptions. Height, weight, blood pressure, and other routine measurements. Personalized health advice. A list of risk factors and treatment options for you. A screening schedule (like a checklist) for appropriate preventive services. Lizzy Whitehead [facility] Note 03-31-2024 Telephone Encounter - Lizzy Whitehead - 03/31/2024 8:07 AM EDT Note Date & Type Note Facility 03-31-2024 Miscellaneous Notes Formattin g of this note is different from the original. ANNUAL MEDICARE WELLNESS VISIT OUTREACH Outreach attempt to contact patient and schedule Medicare wellness. Patient identified by name and date of : NO Outreach outcome: Unable to make contact: 2nd attempt Left message This is Lizzy Whitehead calling from [facility]. Dr. Jim Ruelas MD noticed that you're due for your Medicare wellness visit. They asked me to call and assist you with scheduling an appointment with your primary care office. Can I set that up for you? No Follow up needed:No If the patient asks what a Medicare Wellness visit is: The Medicare wellness visit isn't an exam. It is a great way to get up-to-date with your provider's care team. The purpose of the Annual Wellness Visit under Medicare is to paint a picture of your current state of health and to create a baseline for future care. Any additional test or labs that may be required as a result of the findings of your annual wellness visit would be billed separately by your doctor and would fall under a different benefit than your annual wellness visit. Medicare also covers a number of other preventative services at no cost such as preventative cancer screenings, bone density measurement, and flu shots. Your visit may include: A review of your medical and family history. A review of your current providers and prescriptions. Height, weight, blood pressure, and other routine measurements. Personalized health advice. A list of risk factors and treatment options for you. A screening schedule (like a checklist) for appropriate preventive services. Lizzy Whitehead documented in this encounter [facility] Evaluation note Note Date & Type Note Facility Evaluation note Diagnosis Onset Date Wellness examination [facility] Work Phone: Evaluation note Note Date & Type Note Facility Evaluation note Diagnosis Onset Date Anemia acute BPH (benign prostatic hyperplasia) acute Diabetes type 2, uncontrolled acute Hyperlipidemia LDL goal <130 acute Hypertension chronic [facility] Work Phone: Chief Complaint Chief Complaint Description Start Date right wrist pain Preliminary chief co mplaint data, not yet signed by the author as of Advance Directives No Advanced Directives Records FoundLatest Code Status on File Code Status Date Activated Date Inactivated Comments Full Code 07/05/2019 12:11 PM Assessments There may be information available, but it has not been provided by the sender. Review of System There may be information available, but it has not been provided by the sender. Family History There may be information available, but it has not been provided by the sender.No Family History Records FoundNo Family History Records FoundNo Family History Records FoundNo Family History Records FoundNo Family History Records Found History of Present Illness There may be information available, but it has not been provided by the sender. Summary Purpose Chief Complaint and Reason for Visit Chief Complaint Annual wellness exam PE Reason for Visit Wellness examination Chief Complaint medication refills Reason for Visit Anemia BPH (benign prostatic hyperplasia) Diabetes type 2, uncontrolled Hyperlipidemia LDL goal <130 Hypertension Additional Source Comments Reason for Visit (unrecogniz ed section and content) Reason For Visit Description New - 1st visit with practice Preliminary reason f or visit data, not yet signed by the author as of right wrist pain Reason Comments Appointment Reason Comments Appointment To verify pcp, phone was picked up, then disconnected (unrecognized sect ion and content) No Status Records FoundNo Status Records FoundNo Status Records FoundNo Status Records FoundNo Status Records Found INFORMATION SOURCE (unrecogn ized section and content) DATE CREATED AUTHOR 07/10/2019 [facility] DATE CREATED AUTHOR AUTHOR'S ORGANIZ ATION 12/21/2019 [facility] DATE CREATED AUTHOR AUTHOR'S ORGANIZ ATION 02/08/2021 [facility] DATE CREATED AUTHOR AUTHOR'S ORGANIZ ATION 04/16/2024 [facility] DATE CREATED AUTHOR AUTHOR'S ORGANIZ ATION 08/09/2024 [facility] Care Teams (unrecognized sec tion and content) Team Status: Active Member Role Status Dates María Murphy CODIFIER, CODIFIER-C Family Provider Active María Murphy CODIFIER, CODIFIER-C Primary Care Provider Active Team Status: Inactive Member Role Status Dates María Murphy CODIFIER, CODIFIER-C Primary Care Pr ovider, Attending Provider, Referring Provider Active Team Status: Inactive Member Role Status Dates María Murphy CODIFIER, CODIFIER-C Primary Care Provider, Attend ing Provider Active Fire Regulator Relationship Specialty Start Date End Date María Murphy, PERSONAL COMPUTER NETWORK ANALYST.PROPULSION MACHINERY SERVICE ENGINEER [address] [place] [address] PCP - General Family Medicine 01/28/15 Goals (unrecognized section and content) Goals may be documented in a n alternate sectionGoals may be documented in an alternate section Source Comments (unrecognize d section and content) In the event this informatio n is protected by the Federal Confidentiality of Alcohol and Drug Abuse Patient Records regulations: The Federal rules restrict any use of the information to criminally investigate or prosecute any alcohol or drug abuse patient.[facility] the event this information is protected by the Federal Confidentiality of Alcohol and Drug Abuse Patient Records regulations: The Federal rules restrict any use of the information to criminally investigate or prosecute any alcohol or drug abuse patient.[facility] FOR RECORDS PERTAINING TO PATIENTS WHO ARE OR HAVE BEEN ENROLLED IN A CHEMICAL DEPENDENCY/SUBSTANCEABUSE PROGRAM, SOME INFORMATION MAY BE OMITTED. This clinical summary was aggregated from multiple sources. Caution should be exercised in using it in the provision of clinical care. This summary normalizes information from multiple sources, and as a consequence, information in this document may materially change the coding, format and clinical context of patient data. In addition, data may be omitted in some cases. CLINICAL DECISIONS SHOULD BE BASED ON THE PRIMARY CLINICAL RECORDS. [employer] [facility]. provides no warranty or guarantee of the accuracy or completeness of information in this document.
[2025-04-03 00:21] LABS: Absolute Lymphocyte Count 1.92 X10^3/uL (0.83-4.51); Absolute Neutrophil Count 4.5 X10^3/uL (2.0-7.7); Basophil# 0.05 X10^3/uL; Basophil% 0.7 % (0-1); Eosinophil# 0.08 X10^3/uL; Eosinophils% 1.1 % (0-5); Hematocrit 40.9 % (40-54); Hemoglobin 13.7 g/dL (13.0-16.5); Lymphocyte # 1.92 X10^3/ul (0.83-4.51); Lymphocyte % 27.3 % (19-41); Mean Corp Hgb Conc 33.5 g/dL (32-36); Mean Corpuscular Volume 95.6 fL (80-94); Mean Platelet Vol. 11.3 fl (6.2-12.0); Monocyte# 0.48 X10^3/uL; Monocyte% 6.8 % (0-10); NRBC Flagged by Analyzer 0 % (0-5); Neutrophil # 4.48 X10^3/uL (2.7-7.7); Neutrophil % 63.8 % (47-70); Platelet Count 190 K/mm3 (150-450); RBC Distribution Width CV 12.9 % (11.6-14.6); RBC Distribution Width SD 45.3 fl (35.1-43.9); Red Blood Count 4.28 M/mm3 (4.6-6.2)
[2025-04-03 00:42] LABS: ALB/GLOB Ratio 1.6 RATIO (0.9-2.4); AST(SGOT) 24 U/L (<=37); Alanine Aminotransfer ALT/SGPT 21 U/L (<=46); Albumin, Serum 4.4 g/dL (3.4-4.8); Alkaline Phosphatase 32 U/L (40-129); Anion Gap 12 (5-15); BUN 22 mg/dL (4-19); BUN/Creat Ratio 18.7 RATIO (10-20); Calcium,Total 10.1 mg/dL (7.6-11.0); Carbon Dioxide 24.9 mmol/L (21.0-32.0); Chloride 101 mmol/L (98-108); Cholesterol 103 mg/dL (<=200); Creatinine, Serum 1.19 mg/dL (0.70-1.20); EST Glomerular Filtration Rate 65 (>60); Globulin 2.7 g/dL (2.2-4.2); Glucose 158 mg/dL (70-99); High Density Lipoprotein 40 mg/dL; Low Density Lipoprotein Calc. 34 mg/dL; PSA,Total - Annual Screen 4.67 ng/mL (0.02-4.00); Potassium 4.4 mmol/L (3.3-5.1); Protein, Total 7.2 g/dL (5.9-8.4); Sodium Level 138 mmol/L (133-145); Total Bilirubin 0.27 mg/dL (0.00-1.30); Triglycerides 149 mg/dL; Very Low Density Lipoprotein 30 mg/dL (5-40); cholesterol:hdl ratio screen 2.59
== END | disposition home or self-care (01) ==
PROVIDERS: PCP Nurse Practitioner; Referring Provider Nurse Practitioner; Visit Provider Nurse Practitioner
DX: E11.649 Type 2 diabetes mellitus with hypoglycemia without coma (principal); I10 Essential (primary) hypertension; N40.0 Benign prostatic hyperplasia without lower urinary tract symptoms; E78.5 Hyperlipidemia, unspecified
CPT/HCPCS: 80053; 80061; 84153; 85025; G0103

== ENCOUNTER → 2025-05-28 | Outpatient (CLI) | payer MEDICARE, SELFPAY ==
[2025-05-30 13:08] LABS: PSA, Free 1.13 ng/mL; PSA, Free % 24.9 % (.); PSA, Total Ultrasensitive 4.540 ng/mL (0.000-4.000)
== END | disposition home or self-care (01) ==
PROVIDERS: PCP Nurse Practitioner; Referring Provider Nurse Practitioner; Visit Provider Nurse Practitioner
DX: R97.20 Elevated prostate specific antigen [PSA] (principal); E11.51 Type 2 diabetes mellitus with diabetic peripheral angiopathy without gangrene; I70.219 Atherosclerosis of native arteries of extremities with intermittent claudication, unspecified extremity
CPT/HCPCS: 84153; 84154